=== PATIENT | male | born 1935 | race Caucasian/White ===

== ENCOUNTER 2017-01-20 12:59 | Emergency (ER) | payer MEDICARE, OTHER ==
[~2017-01-20] VITALS: Ht 175.3 cm; Wt 71.8 kg
[2017-01-20 13:00] VITALS: BP 107/58
[2017-02-03] MEDS ORDERED: ASPI81TA85 PO (09:42)
[2017-02-03] MEDS ORDERED: DEPA1TAB3 PO (09:42)
[2017-02-03] MEDS ORDERED: KEPP250T5 PO (09:42)
[2017-02-03] MEDS ORDERED: ATIV1TAB10 PO (09:42)
[2017-02-03] MEDS ORDERED: CELE10TA PO (09:42)
[2017-02-03] MEDS ORDERED: PANT40TA2 PO (11:24)
[2017-02-03] MEDS ORDERED: LORA0.5T11 PO (11:24)
[2017-02-03] MEDS ORDERED: DEPA500T2 PO (11:24)
[2017-02-03] MEDS ORDERED: KEPP1TAB2 PO (11:24)
[2017-02-03] MEDS ORDERED: CITA20TA4 PO (11:24)
[2017-02-03] MEDS ORDERED: PRAZ1CAP PO (11:24)
== END 2017-01-20 13:09 | disposition left against medical advice (07) ==
LOC: M ED 12:59
DX: R29.6 Repeated falls (principal); Z53.29 Procedure and treatment not carried out because of patient's decision for other reasons

== ENCOUNTER → 2017-06-02 | Outpatient (CLI) | payer MEDICARE, OTHER | LOC: M RAD 10:51 | DX: R22.41 Localized swelling, mass and lump, right lower limb (principal) | CPT/HCPCS: 93971 ==

== ENCOUNTER → 2017-10-18 | Outpatient (REF) | payer MEDICARE, OTHER ==
[2017-10-18 12:04] LABS: BASO % 0.9 % (0.0-1.0); EOS # 0.7 10^3/uL (0.0-0.50); EOS % 17.4 % (0.0-3.0); HEMATOCRIT 37.8 % (42.0-52.0); HEMOGLOBIN 12.7 g/dl (13.5-17.5); IMMATURE GRANULOCYTE % 0.5 % (0-3.0); LYMPH # 1.1 10^3/uL (1.5-4.5); LYMPH % 25.6 % (24.0-44.0); MEAN CORPUSCULAR HGB CONC 33.6 g/dl (32.0-36.5); MEAN CORPUSCULAR VOLUME 92.2 fl (80.0-96.0); MONO # 0.4 10^3/uL (0.0-0.8); MONO % 9.9 % (0.0-5.0); NEUTROPHILS # 1.9 10^3/uL (1.8-7.7); NEUTROPHILS % 45.7 % (36.0-66.0); PLATELET COUNT, AUTOMATED 114 10^3/uL (150-450); RED CELL DISTRIBUTION WIDTH 12.9 % (11.5-14.5); WHITE BLOOD COUNT 4.3 10^3/uL (4.0-10.0)
[2017-10-18 12:22] LABS: C REACTIVE PROTEIN QUANTITATIV 0.41 MG/DL (0.00-0.30)
[2017-10-18 12:34] LABS: ERYTHROCYTE SEDIMENTATION RATE 8 mm/hr (0-20)
== END ==
LOC: M LABDRAW1 10:02
DX: M25.572 Pain in left ankle and joints of left foot (principal)
CPT/HCPCS: 86140

== ENCOUNTER 2018-10-26 17:45 | Emergency (ER) | payer MEDICARE, OTHER ==
[~2018-10-26] VITALS: Ht 175.3 cm; Wt 68.2 kg
[~2018-10-26 17:45] MED LIST: ASPI81TA85 PO; ATIV1TAB10 PO; CELE10TA PO; CITA20TA6 PO; CLAR10CA3 PO; DEPA1TAB3 PO; DEPA500T2 PO; KEPP1TAB2 PO; KEPP250T5 PO; LORA0.5T11 PO; PANT40TA3 PO; PRAZ1CAP PO
[2018-10-26] MEDS ORDERED: NS 1,000 ML IV ONE (18:15)
[2018-10-26 18:33] LABS: BASO % 0.5 % (0.0-1.0); EOS # 0.4 10^3/uL (0.0-0.50); EOS % 8.9 % (0.0-3.0); HEMOGLOBIN 11.3 g/dl (13.5-17.5); LYMPH # 1.3 10^3/uL (1.5-4.5); LYMPH % 31.9 % (24.0-44.0); MEAN CORPUSCULAR HEMOGLOBIN 30.6 pg (27.0-33.0); MEAN CORPUSCULAR HGB CONC 33.2 g/dl (32.0-36.5); MEAN CORPUSCULAR VOLUME 92.1 fl (80.0-96.0); MONO # 0.3 10^3/uL (0.0-0.8); MONO % 7.8 % (0.0-5.0); NEUTROPHILS % 50.6 % (36.0-66.0); PLATELET COUNT, AUTOMATED 105 10^3/uL (150-450); RED BLOOD COUNT 3.69 10^6/uL (4.30-6.10)
[2018-10-26 19:13] LABS: BLOOD UREA NITROGEN 21 MG/DL (7-18); CALCIUM LEVEL 8.3 MG/DL (8.8-10.2); CARBON DIOXIDE LEVEL 32 MEQ/L (21-32); CHLORIDE LEVEL 106 MEQ/L (98-107); CK-MB VALUE MASS 3.8 NG/ML (<3.6); CPK CREATINE PHOSPHOKINASE 118 U/L (39-308); CREATININE FOR GFR 1.43 MG/DL (0.70-1.30); GLOMERULAR FILTRATION RATE 50.4 (>35); GLUCOSE, FASTING 109 MG/DL (70-100); MB/CK RELATIVE INDEX 3.22 (< OR =4); POTASSIUM SERUM 4.4 MEQ/L (3.5-5.1); SODIUM LEVEL 143 MEQ/L (136-145); TROPONIN I < 0.02 NG/ML (< 0.10)
--- NOTE | 2018-10-26 20:26 | REP ---
Right shoulder four views: There is a fracture of the distal clavicle. The glenohumeral articulation is unremarkable. There is demineralization. There are no calcifications or foreign bodies. Impression: Fracture of the distal clavicle. Electronically Signed by Byron Olivia MD 10/26/2018 08:17 P
--- NOTE | 2018-10-26 20:27 | REP ---
Right humerus three views: There is a fracture of the distal clavicle. There is demineralization. There is no dislocation. There are no calcifications or foreign bodies. Impression: Fracture of the distal clavicle. Demineralization. Electronically Signed by Byron Olivia MD 10/26/2018 08:18 P
--- NOTE | 2018-10-26 20:28 | REP ---
Chest, single PA view: Comparison is 02/03/2017. The lung melo are clear. Cardiac size is normal. The chemo, mediastinum, skeletal structures are unremarkable except for a fracture of the distal right clavicle. Impression: Fracture of the distal right clavicle, otherwise negative PA chest. Electronically Signed by Byron Olivia MD 10/26/2018 08:19 P
[2018-10-26 21:09] VITALS: BP 119/58
--- NOTE | 2018-10-27 09:42 | ECGEPIP ---
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
== END 2018-10-26 21:26 | disposition home or self-care (01) ==
LOC: EDBD 17:45 → M ED 17:45
DX: S42.001A Fracture of unspecified part of right clavicle, initial encounter for closed fracture (principal); W01.0XXA Fall on same level from slipping, tripping and stumbling without subsequent striking against object, initial encounter; Y92.89 Other specified places as the place of occurrence of the external cause; K21.9 Gastro-esophageal reflux disease without esophagitis; Z79.899 Other long term (current) drug therapy; Z79.82 Long term (current) use of aspirin

== ENCOUNTER 2019-05-23 13:39 | Inpatient (IN) | payer MEDICARE, OTHER ==
[~2019-05-23] VITALS: Ht 175.3 cm; Wt 68.9 kg
[~2019-05-23 13:39] MED LIST changes: -APAP325T4 PO; -DULC10SU2 PR; -ENEMENE PR; -GLUC1LIQ7 PO; -LASI20TA3 PO; -LORA-436 PO; -MACR100C43 PO; -METO1TAB87 PO; -MIRT1TAB PO; -MOM30SS PO; -NAPR250T4 PO; -VITMTA PO
[2019-05-23 14:13] LABS: BASO % 0.2 % (0.0-1.0); EOS # 0.1 10^3/uL (0.0-0.5); EOS % 0.4 % (0.0-3.0); HEMATOCRIT 41.5 % (42.0-52.0); HEMOGLOBIN 13.1 g/dl (13.5-17.5); LYMPH # 1.3 10^3/uL (1.5-5.0); LYMPH % 9.1 % (24.0-44.0); MEAN CORPUSCULAR HGB CONC 31.6 g/dl (32.0-36.5); MONO # 0.8 10^3/uL (0.0-0.8); MONO % 5.8 % (0.0-5.0); NEUTROPHILS # 12.1 10^3/uL (1.5-8.5); NEUTROPHILS % 83.9 % (36.0-66.0); PLATELET COUNT, AUTOMATED 140 10^3/uL (150-450); RED BLOOD COUNT 4.51 10^6/uL (4.30-6.10); WHITE BLOOD COUNT 14.4 10^3/uL (4.0-10.0)
--- NOTE | 2019-05-23 14:49 | REP ---
Clinical: Tachycardia . Comparison: 05/23/2019, . Findings: Most recent examination performed using optimal technique for portable examination demonstrates chronic interstitial changes and the previously suspected left lower lobe infiltrate represents chronic change. No focal consolidation or effusion. Mediastinum and cardiac silhouette normal. Skeletal structures demonstrate age-related osteopenia and degenerative changes. Impression: 1. Examination performed with improved aeration and technique demonstrates chronic changes at the left base. 2. No focal consolidation or effusion. Electronically Signed by Tuan Ruffin MD 05/23/2019 02:41 P
[2019-05-23 14:53] LABS: PARTIAL THROMBOPLASTIN TIME 34.8 SECONDS (25.0-38.4)
[2019-05-23] MEDS ORDERED: NS 500 ML IV ONE ×2 (15:00→16:15)
[2019-05-23 15:01] LABS: ALT/SGPT 8 U/L (12-78); BILIRUBIN,DIRECT < 0.1 MG/DL (0.0-0.2); BILIRUBIN,TOTAL 0.3 MG/DL (0.2-1.0); BLOOD UREA NITROGEN 30 MG/DL (7-18); CALCIUM LEVEL 8.6 MG/DL (8.8-10.2); CARBON DIOXIDE LEVEL 33 MEQ/L (21-32); CHLORIDE LEVEL 105 MEQ/L (98-107); CPK CREATINE PHOSPHOKINASE 73 U/L (39-308); CREATININE FOR GFR 1.24 MG/DL (0.70-1.30); GLOMERULAR FILTRATION RATE 59.3 (>35); GLUCOSE, FASTING 79 MG/DL (70-100); LIPASE 35 U/L (73-393); MB/CK RELATIVE INDEX 1.37 (< OR =4); NT-PRO BNP 4402 PG/ML (<450); SODIUM LEVEL 140 MEQ/L (136-145); TOTAL PROTEIN 6.2 GM/DL (6.4-8.2); TROPONIN I < 0.02 NG/ML (< 0.10)
[2019-05-23 15:04] LABS: INR 1.08; PROTHROMBIN TIME 13.7 SECONDS (11.8-14.0)
[2019-05-23] MEDS ORDERED: DULC10SU2 PR (15:08)
[2019-05-23] MEDS ORDERED: MIRT1TAB PO (15:08)
[2019-05-23] MEDS ORDERED: MOM30SS PO (15:08)
[2019-05-23] MEDS ORDERED: MACR100C43 PO (15:08)
[2019-05-23] MEDS ORDERED: NAPR250T4 PO (15:08)
[2019-05-23] MEDS ORDERED: ENEMENE PR (15:08)
[2019-05-23] MEDS ORDERED: VITMTA PO (15:08)
[2019-05-23] MEDS ORDERED: APAP325T4 PO (15:08)
[2019-05-23] MEDS ORDERED: LORA-436 PO (15:08)
[2019-05-23] MEDS ORDERED: GLUC1LIQ7 PO (15:08)
[2019-05-23] MEDS ORDERED: CELE10TA PO (15:08)
[2019-05-23] MEDS ORDERED: ISOVUE-370 76% 100ML VIAL (Q9967) As Ordered ONE (15:31)
[2019-05-23 15:43] LABS: INFLUENZA A AMPLIFICATION NEGATIVE (NEGATIVE); INFLUENZA B AMPLIFICATION NEGATIVE (NEGATIVE)
[2019-05-23] MEDS ORDERED: VANCOMYCIN HCL 1,000 MG, VIAL MATE ADAPTER 1 EACH in D5W 250 ML IV STA (16:00)
[2019-05-23] MEDS ORDERED: PIPERACILLIN/TAZOBACTAM SOD 3.375 GM in D5W MINI-BAG PLUS 50 ML IV ONE (16:00)
[2019-05-23] MEDS ORDERED: DIGOXIN INJ 0.5 MG/2 ML AMP (J1160) IV STA (16:04)
--- NOTE | 2019-05-23 16:04 | REP ---
Clinical: Chest pain and atrial fibrillation . Technique: Axial contrast enhanced images from the thoracic inlet to the upper abdomen using 75 ml Isovue 370 intravenous contrast material with multiplanar re-formations. Findings: Satisfactory enhancement of the pulmonary vasculature is achieved and no filling defects are identified to suggest pulmonary embolus. Moderate right lower lobe consolidation along with bibasilar atelectasis and small bilateral pleural reactions (left greater than right). No pneumothorax. Reactive adenopathy primarily in the right hilum and subcarinal region noted. Atherosclerotic changes to the thoracic aorta and coronary arteries noted without aortic aneurysm or cardiomegaly. No pericardial effusion. Thickening of the mid/distal esophagus and moderate hiatal hernia noted. Impression: 1. No evidence for pulmonary embolus. 2. Moderate right consolidation, bibasilar atelectasis, and small bilateral pleural reactions noted. Reactive adenopathy suggested. Follow-up to resolution recommended. 3. Circumferential thickening of the mid/distal esophagus with moderate hiatal hernia. Electronically Signed by Tuan Ruffin MD 05/23/2019 03:55 P
--- NOTE | 2019-05-23 16:11 | REP ---
Clinical: Abdominal pain. Technique: Axial contrast enhanced images from the lung bases to the pubic symphysis using 100 ml Isovue 370 intravenous contrast material with coronal and sagittal re-formations. Comparison: 02/03/2017. Findings: Lung bases demonstrate right lower lobe consolidation, bibasilar atelectasis, and small pleural reactions. Hiatal hernia noted. Liver, spleen, pancreas, bilateral adrenal glands are normal. Cholelithiasis again noted without evidence for acute cholecystitis. Kidneys demonstrate cortical age-related changes along with stable cysts measuring 2 cm in the lower pole right kidney and up to approximately 2.7 cm along the posterior left kidney. Evaluation of the enteric system demonstrates moderate hiatal hernia. Diffuse colonic diverticulosis noted without obvious acute diverticulitis. No evidence for bowel obstruction and no free air to suggest perforation. Pelvis demonstrates Degroot catheter in partially collapsed bladder and age appropriate prostate/seminal vesicles. Small amount of free fluid extends along the right paracolic gutter into the pelvis which is nonspecific and likely chronic. Atherosclerotic changes to the aorta and vasculature without aneurysm or dissection. Skeletal structures demonstrate osteopenia and degenerative changes. Impression: 1. Pulmonary findings as described above. 2. Diverticulosis without obvious acute diverticulitis. 3. Cholelithiasis without acute cholecystitis. 4. Stable bilateral renal cysts without hydronephrosis or acute perinephric stranding. 5. Chronic stable age-related changes. 6. No obvious acute abdominopelvic pathology otherwise noted. Electronically Signed by Tuan Ruffin MD 05/23/2019 04:02 P
--- NOTE | 2019-05-23 16:12 | REP ---
Clinical: Altered mental status. Comparison: 02/03/2017 . Findings: Age-related atrophy and microvascular ischemic changes are appreciated. The ventricles and sulci are symmetric. Valdez-white differentiation is maintained. There is no evidence for acute intracranial hemorrhage, mass/mass effect, pathology or infarction. No extra-axial fluid collection. Calvarium is intact. Paranasal sinuses and mastoid air cells are clear. Impression: Age related atrophy and microvascular ischemic changes. No acute intracranial hemorrhage, infarction, or mass/mass effect. Electronically Signed by Tuan Ruffin MD 05/23/2019 04:03 P
[2019-05-23] MEDS ORDERED: METOPROLOL 5 MG/5 ML VIAL IV STA (16:45)
[2019-05-23] MEDS ORDERED: METOPROLOL 5 MG/5 ML VIAL IV PRN (17:00)
[2019-05-23] MEDS ORDERED: MOM 30ML SUSPENSION UDC PO PRN (17:00)
[2019-05-23] MEDS ORDERED: BISACODYL 10 MG SUPP PR PRN (17:00)
[2019-05-23] MEDS ORDERED: ACETAMINOPHEN 325 MG TAB PO PRN (17:00)
[2019-05-23] MEDS ORDERED: FLEET ENEMA PR PRN (17:00)
[2019-05-23] MEDS ORDERED: METOPROLOL TART 25 MG TABLET PO ONE (17:00)
[2019-05-23] MEDS ORDERED: HEPARIN SOD (PORCINE) 5000 UNITS/ML VIAL (J1644 PER 1000UNITS) SC SCH (17:15)
[2019-05-23] MEDS ORDERED: VANCOMYCIN HCL IV SCH (17:15)
[2019-05-23] MEDS ORDERED: FLUID PLACE HOLDER IV SCH (17:15)
[2019-05-23] MEDS ORDERED: ALBUTEROL SULFATE 2.5 MG/0.5 ML INH NEB SOLN INH PRN (17:15)
[2019-05-23] MEDS ORDERED: ACETAMINOPHEN TAB 650MG DOSE (2X325MG) PO PRN (17:15)
--- NOTE | 2019-05-23 17:18 | HPEPDOC ---
General Date of Admission 05/23/19 Date of Service: May 23, 2019 Chief Complaint The patient is a 83-year-old male admitted with a reason for visit of Afib Rvr. Source: Patient, Family, Old records Exam Limitations: No limitations, Clinical conditions Timing/Duration: Day(s) Severity: Severe Associated Symptoms: Shortness of breath History of Present Illness Patient is 83 years old male with past history of seizures, anxiety, posttraumatic stress disorder, hypertension, frequent falls presented hospital with atrial fibrillation with rapid ventricular rate and altered mental status. Patient was transferred from [facility] when he developed confusion. In emergency room patient was found to have any new onset of atrial fibrillation with rapid ventricular rate, white blood count of 14.4, hemoglobin 13.1, potassium 5, TSH within normal limit, BMP 4400, troponin negative, creatinine 1.24. CT chest moderate right consolidation. Abdominal CT showed diverticulosis without obvious acute diverticulitis. Home Medications Scheduled Citalopram Hydrobromide (Celexa) 10 Mg Tablet, 10 MG PO DAILY, (Reported) Divalproex Sodium (Depakote ER) 500 Mg Tab, 500 MG PO BID, (Reported) Levetiracetam (Keppra) 750 Mg Tab, 1,500 MG PO BID, (Reported) Loratadine (Loratadine) 10 Mg Tablet, 10 MG PO DAILY, (Reported) Mirtazapine (Mirtazapine) 7.5 Mg Tablet, 7.5 MG PO QHS, (Reported) Multivitamins (Thera M Plus Tablet) 1 Each Tablet, 1 TAB PO DAILY, (Reported) Naproxen (Naproxen) 250 Mg Tablet, 250 MG PO BID, (Reported) Nitrofurantoin Monohyd/M-Cryst (Macrobid 100 mg Capsule) 100 Mg Capsule, 100 MG PO BID, (Reported) STARTED 05/19/19 DUE TO STOP ON 05/24/19 Nut.tx.gluc.intoler,Lac-Fr,Soy (Glucerna 1.2 Kevin) 237 Ml Liquid, 240 ML PO BID, (Reported) Pantoprazole Sodium (Pantoprazole Sodium) 40 Mg Tab, 40 MG PO DAILY, (Reported) Scheduled PRN Acetaminophen (Acetaminophen) 325 Mg Tablet, 650 MG PO Q4H PRN for PAIN / FEVER, (Reported) Bisacodyl (Dulcolax) 10 Mg Supp.rect, 10 MG OK DAILY PRN for CONSTIPATION, (Reported) Milk Of Magnesia (Milk of Magnesia) 2,400 Mg/10 Ml Oral.susp, 10 ML PO DAILY PRN for CONSTIPATION, (Reported) Sodium Phosphate,[place]ck[place]ridge-Dibasic (Enema) 133 Ml Enema, 1 BRITTANY OK DAILY PRN for CONSTIPATION, (Reported) Allergies Coded Allergies: No Known Allergies (Verified , 10/26/18) Past Medical History Medical History Seizure disorder. Anxiety. Post-traumatic stress disorder (PTSD). Recurrent falls recently. Recent history of nausea, vomiting and dehydration for which he was admitted at [facility] from 01/30/2017 to 02/01/2017. Chronic mastoiditis of the left side. Chronic hypotension. Surgical History Appendectomy. Esophagogastroduodenoscopy (EGD) and colonoscopy. Family History I personally reviewed family history and found not pertinent Social History * Smoker: Denies, former Smoker Alcohol: Denies Drugs: denies A-FIB/CHADSVASC A-FIB History Current/History of A-Fib/PAF?: Yes Current PO Anticoag Therapy: Yes Review of Systems Constitutional: Denies: Chills, Fever Eyes: Denies: Pain ENT: Denies: Head Aches Skin: Denies: Rash, Lesions Pulmonary: Reports: Dyspnea, Cough Cardiovascular: Reports: Palpitations; Denies: Chest Pain Gastrointestinal: Denies: Nausea, Vomiting Genitourinary: Denies: Dysuria, Frequency Hematologic: Denies: Bruising, Bleeding Excessively Endocrine: Denies: Polydipsia, Polyphagia Musculoskeletal: Denies: Neck Pain, Back Pain Neurological: Denies: Weakness Psych: Reports: Mood Normal Physical Examination General Exam: Positive: Alert, Cooperative Eye Exam: Positive: PERRLA ENT Exam: Positive: Atraumatic Neck Exam: Positive: Supple; Negative: JVD Chest Exam: Positive: Rales (over a right lung area), Diminished; Negative: Clear to auscultation Heart Exam: Positive: Irregular Rhythm Telemetry: Positive: Atrial fibrillation Abdomen Exam: Positive: Normal bowel sounds Extremity Exam: Negative: Clubbing, Cyanosis, Swelling Skin Exam: Positive: Nl turgor and temperature Neuro Exam: Positive: Normal Gait Psych Exam: Positive: Other (patient is lethargic) Vital Signs Vital Signs Date Time Temp Pulse Resp B/P (MAP) Pulse Ox O2 Delivery O2 Flow Rate FiO2 05/23/19 16:41 145 129/71 (90) 05/23/19 15:27 16 99 Nasal Cannula 4.0 05/23/19 13:41 96.5 Laboratory Data Labs 24H Laboratory Tests 2 05/23/19 13:59: Immature Granulocyte % (Auto) 0.6, Neutrophils (%) (Auto) 83.9H, Lymphocytes (%) (Auto) 9.1L, Monocytes (%) (Auto) 5.8H, Eosinophils (%) (Auto) 0.4, Basophils (%) (Auto) 0.2, Neutrophils # (Auto) 12.1H, Lymphocytes # (Auto) 1.3L, Monocytes # (Auto) 0.8, Eosinophils # (Auto) 0.1, Basophils # (Auto) 0.0, Nucleated Red Blood Cells % (auto) 0.0, Anion Gap 2L, Glomerular Filtration Rate 59.3, Calcium Level 8.6L, Total Bilirubin 0.3, Direct Bilirubin < 0.1, Aspartate Amino Transf (AST/SGOT) 33, Alanine Aminotransferase (ALT/SGPT) 8L, Alkaline Phosphatase 69, Total Creatine Kinase 73, Creatine Kinase MB 1.0, Creatine Kinase MB Relative Index 1.37, Troponin I < 0.02, IT-Xam-K-Type Natriuretic Peptide 4402H, Total Protein 6.2L, Albumin 2.0L, Albumin/Globulin Ratio 0.48L, Lipase 35L, Thyroid Stimulating Hormone (TSH) 1.940, Free Thyroxine 1.20 05/23/19 14:09: Bedside Glucose (Misc Panel) 77L 05/23/19 14:13: Prothrombin Time 13.7, Prothromb Time International Ratio 1.08, Activated Partial Thromboplast Time 34.8 05/23/19 15:07: Influenza Type A (RT-PCR) NEGATIVE, Influenza Type B (RT-PCR) NEGATIVE 05/23/19 15:30: Urine Color PALLAVI, Urine Appearance CLOUDYH, Urine pH 8.0, Urine Specific [place] 1.023, Urine Protein 1+H, Urine Glucose (UA) NEGATIVE, Urine Ketones 1+H, Urine Blood 3+H, Urine Nitrite NEGATIVE, Urine Bilirubin NEGATIVE, Urine Urobilinogen 0.2, Urine Leukocyte Esterase TRACEH, Urine WBC (Auto) 33H, Urine RBC (Auto) TNTCH, Urine Hyaline Casts (Auto) 0, Urine Bacteria (Auto) NEGATIVE, Urine Squamous Epithelial Cells 0, Urine Amorphous Sediment SMALLH, Urine Mucus (Auto) SMALL, Urine Sperm (Auto) CBC/BMP Laboratory Tests 05/23/19 13:59 Microbiology Microbiology 05/23/19 Urine Culture, Received Pending 05/23/19 Blood Culture, Received Pending 05/23/19 Blood Culture, Received Pending Assessment/Plan Patient is 83 years old male with past history of seizures, anxiety, posttraumatic stress disorder, hypertension, frequent falls presented hospital with atrial fibrillation with rapid ventricular rate and altered mental status. Patient was transferred from [facility] when he developed confusion. In emergency room patient was found to have any new onset of atrial fibrillation with rapid ventricular rate, white blood count of 14.4, hemoglobin 13.1, potassium 5, TSH within normal limit, BMP 4400, troponin negative, creatinine 1.24. CT chest moderate right consolidation. Abdominal CT showed diverticulosis without obvious acute diverticulitis. Problems (1) Sepsis Status: Acute Problem Text: Most likely secondary to pneumonia, community-acquired versus aspiration Patient has leukocytosis, tachycardia and tachypnea Speech evaluation IV fluid Blood culture, sputum culture Respiratory panel Vancomycin IV, Zosyn IV, doxycycline IV (2) Pneumonia Status: Acute Problem Text: CT scan showed a right lower lung infiltrate IV fluid Sputum culture, urine antigen for Streptococcus and Legionella IV broad-spectrum antibiotics Incentive spirometry Inhalers (3) Atrial fibrillation with RVR Status: Acute Problem Text: I initiated beta jessica PO Lopressor IV when necessary Targeted oral anticoagulation initiated, I will defer continuation of anticoag ulation therapy to primary care physician in the outpatient settings. Patient had a history of multiple falls Echo Troponin negative BNP is elevated most likely secondary to atrial fibrillation. Patient dry on the exam, no JVD, no leg swelling (4) Acute kidney injury Status: Acute Problem Text: Continue IV fluid Most likely prerenal secondary to dehydration (5) Seizures Status: Chronic Problem Text: Seizure precaution Continue home meds (6) Metabolic encephalopathy Status: Acute Problem Text: Most likely secondary to sepsis, dehydration See above Plan / VTE VTE Prophylaxis Ordered?: Yes JAKOB SPARKS DO May 23, 2019 17:18
[2019-05-23] MEDS: NS 1,000 ML IV SCH (18:51)
[2019-05-23] MEDS: RIVAROXABAN 20 MG TAB (XARELTO) PO SCH (18:52)
--- NOTE | 2019-05-23 18:55 | ECGEPIP ---
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
[2019-05-23 19:00] LABS: CK-MB VALUE MASS < 1.0 NG/ML (<3.6); CPK CREATINE PHOSPHOKINASE 34 U/L (39-308); MAGNESIUM LEVEL 1.9 MG/DL (1.8-2.4); MB/CK RELATIVE INDEX 2.94 (< OR =4); PHOSPHORUS LEVEL 2.7 MG/DL (2.5-4.9); TROPONIN I < 0.02 NG/ML (< 0.10)
[2019-05-23 22:17] VITALS: BP 107/66
[2019-05-23] MEDS: levETIRAcetam 250MG TABLET (KEPPRA) PO SCH (22:58)
[2019-05-23] MEDS: METOPROLOL TART 25 MG TABLET PO SCH (22:58)
[2019-05-23] MEDS: DIVALPROEX 500MG *ER* TAB PO SCH (22:58)
[2019-05-23] MEDS: DOXYCYCLINE HYCLATE 100 MG in D5W MINI-BAG PLUS 100 ML IV SCH (22:59)
[2019-05-23] MEDS: MIRTAZAPINE 7.5MG PER 1/2 TABLET PO SCH (23:25)
[2019-05-24] VITALS (7 sets, daily range): BP systolic 92–118; BP diastolic 51–69
--- NOTE | 2019-05-24 00:40 | PHACANCOPD ---
PHARMACY VANCOMYCIN DOSING Pt Demographics Demographics Patient Age:83 , Weight:65.600 , Gender: male Adjusted Body Weight Date: 05/24/19, Adjusted Body Weight: [65.6] Kg(ACTUAL WT) Vancomycin Vancomycin indication: CAP Vancomycin Target Ranges: 15-20 mcg/ml Vancomycin Load Y/N: Yes Load Dose Date Time Vancomycin Load Dose: 1GM Date: 05/23 Time:1730 Vancomycin Dose Date: 05/24/19. Current Vancomycin Dose: [1 GM Q18H] Intermittent Dosing?: No Labs Micro Microbiology 05/23/19 Urine Culture, Received Pending 05/23/19 Blood Culture, Received Pending 05/23/19 Blood Culture, Received Pending Creatinine Clearance Date:05/24/19. Creatinine Clearance: [42.13].CALCULATED Assessment and Plan Maintaining Current Dose?: Yes Reason for dose change: No Dose Change Pharmacist Note Pharmacist Note Date: 05/24/19. Pharmacist note:83YOM ADMITTED W/SUSPECTED CAP.5'9",65.6 KG,NKDA,SCR=1.24,CRCL=42.13 (calculated)MRSA PCR ordered. Tx includes :Doxycyxline 100mg IV Q12H,Pip/Tazo 4.5gm IV Q6H and Pharmacy dosed Vancomycin.Vanco 1 gram administered in ED 05/23@1730.Will begin Vancomycin regimen at 1 gram IV [id number] 05/24@0100: first trough ordered for 05/24@1800(prior to 3rd dose)-will continue to follow [facility] May 24, 2019 00:40
[2019-05-24] MEDS ORDERED: VANCOMYCIN HCL 1,000 MG, VIAL MATE ADAPTER 1 EACH in D5W 250 ML IV SCH (01:00)
[2019-05-24] MEDS: PIPERACILLIN/TAZOBACTAM SOD 4.5 GM in D5W MINI-BAG PLUS 100 ML IV SCH ×5 (01:28→23:52)
[2019-05-24 01:36] LABS: CK-MB VALUE MASS < 1.0 NG/ML (<3.6); CPK CREATINE PHOSPHOKINASE 24 U/L (39-308); MB/CK RELATIVE INDEX 4.17 (< OR =4); TROPONIN I < 0.02 NG/ML (< 0.10)
[2019-05-24 08:47] LABS: HEMATOCRIT 33.6 % (42.0-52.0); MEAN CORPUSCULAR HEMOGLOBIN 29.7 pg (27.0-33.0); MEAN CORPUSCULAR HGB CONC 31.8 g/dl (32.0-36.5); MEAN CORPUSCULAR VOLUME 93.3 fl (80.0-96.0); PLATELET COUNT, AUTOMATED 124 10^3/uL (150-450); WHITE BLOOD COUNT 12.4 10^3/uL (4.0-10.0)
[2019-05-24 08:56] LABS: HEMOGLOBIN 10.7 g/dl (13.5-17.5)
[2019-05-24] MEDS: METOPROLOL TART 25 MG TABLET PO SCH ×2 (09:00→21:34)
[2019-05-24] MEDS: DOXYCYCLINE HYCLATE 100 MG in D5W MINI-BAG PLUS 100 ML IV SCH ×2 (09:05→21:35)
[2019-05-24] MEDS: levETIRAcetam 250MG TABLET (KEPPRA) PO SCH ×2 (09:06→21:33)
[2019-05-24] MEDS: DIVALPROEX 500MG *ER* TAB PO SCH ×2 (09:06→21:32)
[2019-05-24] MEDS: CitaloPRAM (CeleXA) 10 MG TABLET PO SCH (09:06)
[2019-05-24] MEDS: PANTOPRAZOLE 40MG TAB (PROTONIX) PO SCH (09:06)
[2019-05-24] MEDS: NS 1,000 ML IV SCH ×3 (09:07→23:51)
[2019-05-24 09:12] LABS: ALBUMIN 1.7 GM/DL (3.2-5.2); ALT/SGPT 6 U/L (12-78); BILIRUBIN,TOTAL 0.4 MG/DL (0.2-1.0); BLOOD UREA NITROGEN 25 MG/DL (7-18); CALCIUM LEVEL 8.1 MG/DL (8.8-10.2); CARBON DIOXIDE LEVEL 31 MEQ/L (21-32); CHLORIDE LEVEL 109 MEQ/L (98-107); CREATININE FOR GFR 0.94 MG/DL (0.70-1.30); GLOMERULAR FILTRATION RATE > 60.0 (>35); GLUCOSE, FASTING 73 MG/DL (70-100); POTASSIUM SERUM 4.3 MEQ/L (3.5-5.1); SODIUM LEVEL 143 MEQ/L (136-145); TOTAL PROTEIN 5.5 GM/DL (6.4-8.2)
[2019-05-24 09:19] LABS: CK-MB VALUE MASS < 1.0 NG/ML (<3.6); CPK CREATINE PHOSPHOKINASE 26 U/L (39-308); MB/CK RELATIVE INDEX 3.85 (< OR =4); TROPONIN I < 0.02 NG/ML (< 0.10)
[2019-05-24] MEDS ORDERED: VARIBAR PUDDING 40% w/v 230ML TUBE As Ordered ONE (11:52)
[2019-05-24] MEDS ORDERED: BARIUM SULFATE 700 MG TABLET (E-Z-DISK) As Ordered ONE (11:53)
[2019-05-24] MEDS ORDERED: VARIBAR NECTAR 40% w/v 240ML SUSP BTL As Ordered ONE (11:53)
[2019-05-24] MEDS ORDERED: E-Z-PAQUE 96% w/w SUSP 176GM BTL As Ordered ONE (11:53)
--- NOTE | 2019-05-24 16:20 | IPNPDOC ---
Text Note Date of Service The patient was seen on 05/24/19. NOTE Subjective: Patient stated that he feels much better today, his breathing imp roved. Patient denied fever, chills, nausea, vomiting, diarrhea Objective: VITAL SIGNS: Please see below. GENERAL APPEARANCE: Male, not in apparent distress HEENT: Normocephalic, atraumatic. Mucous members moist and pink CARDIOVASCULAR: Regular rate and rhythm. No murmurs, rubs or gallops. Radial pulses are intact. There is no lower extremity edema LUNGS: Diminished lung sounds ABDOMEN: Abdomen is soft and nontender. MUSCULOSKELETAL: Range of motion is intact in all 4 extremities NEUROLOGICAL: Cranial nerves II-12 are grossly intact. Speech is not dysarthric Assessment/Plan Patient is 83 years old male with past history of seizures, anxiety, posttraumatic stress disorder, hypertension, frequent falls presented hospital with atrial fibrillation with rapid ventricular rate and altered mental status. Patient was transferred from [facility] when he developed confusion. In emergency room patient was found to have any new onset of atrial fibrillation with rapid ventricular rate, white blood count of 14.4, hemoglobin 13.1, potassium 5, TSH within normal limit, BMP 4400, troponin negative, creatinine 1.24. CT chest moderate right consolidation. Abdominal CT showed diverticulosis without obvious acute diverticulitis. Problems (1) Sepsis Resolved Most likely secondary to pneumonia, community-acquired versus aspiration Patient had leukocytosis, tachycardia and tachypnea on the admission Speech evaluation positive for oropharyngeal dysfunction. Diet was modified Continue IV fluid Blood culture negative, sputum culture pending Respiratory panel negative MRSA negative, vancomycin discontinued Zosyn IV, doxycycline IV (2) Pneumonia CT scan showed a right lower lung infiltrate most likely secondary to aspiration IV fluid Sputum culture, urine antigen for Streptococcus and Legionella pending IV broad-spectrum antibiotics Incentive spirometry Inhalers Aspiration precaution (3) Atrial fibrillation with RVR Resolved, converted to sinus rhythm on telemetry We'll repeat EKG I initiated beta jessica PO Lopressor IV when necessary Targeted oral anticoagulation initiated, I will defer continuation of anticoagulation therapy to primary care physician in the outpatient settings. Kenan romero had a history of multiple falls Echo pending Troponin negative BNP was elevated most likely secondary to atrial fibrillation. Patient dry on the exam, no JVD, no leg swelling (4) Acute kidney injury Continue IV fluid Most likely prerenal secondary to dehydration (5) Seizures Seizure precaution Continue home meds (6) Metabolic encephalopathy Resolved Most likely secondary to sepsis, dehydration See above Plan / VTE VTE Prophylaxis Ordered?: Yes VS,Fishbone, I+O VS, Fishbone, I+O Laboratory Tests 05/24/19 08:37 Vital Signs Date Time Temp Pulse Resp B/P (MAP) Pulse Ox O2 Delivery O2 Flow Rate FiO2 05/24/19 12:50 96.9 81 18 92/51 (65) 100 Room Air 05/24/19 04:43 4.0 I&O- Last 24 Hours up to 6 AM 05/24/19 06:00 Intake Total 1910 ml Output Total 450 ml Balance 1460 ml JAKOB SPARKS DO May 24, 2019 16:20
[2019-05-24 17:30] LABS: BLOOD UREA NITROGEN 24 MG/DL (7-18); CARBON DIOXIDE LEVEL 33 MEQ/L (21-32); CHLORIDE LEVEL 109 MEQ/L (98-107); CREATININE FOR GFR 0.88 MG/DL (0.70-1.30); GLOMERULAR FILTRATION RATE > 60.0 (>35); GLUCOSE, FASTING 75 MG/DL (70-100); MAGNESIUM LEVEL 1.8 MG/DL (1.8-2.4); SODIUM LEVEL 142 MEQ/L (136-145)
[2019-05-24] MEDS: RIVAROXABAN 20 MG TAB (XARELTO) PO SCH (18:37)
--- NOTE | 2019-05-24 20:14 | ECGEPIP ---
[facility] Test Date: 2019-05-24 Pat Name: MEGHANN ZURITA Department: Room: [place] [address] Gender: Male Speech Coach: cecilio : 1935 Requested By: JAKOB SPARKS Order Number: [id number] Reading MD: Abram Chilel Measurements Intervals [place] Rate: 81 P: 18 UT: 164 QRS: 43 QRSD: 94 T: 25 QT: 371 QTc: 433 Interpretive Statements SINUS RHYTHM Within normal limits. Rhythm change compared with at 1403 hrs. Electronically Signed on 05-24-2019 20:14:12 EST by Abram Chilel
[2019-05-24] MEDS: MIRTAZAPINE 7.5MG PER 1/2 TABLET PO SCH (21:57)
[2019-05-25] VITALS (7 sets, daily range): BP systolic 80–122; BP diastolic 44–64
[2019-05-25 06:17] LABS: HEMATOCRIT 29.9 % (42.0-52.0); HEMOGLOBIN 9.4 g/dl (13.5-17.5); MEAN CORPUSCULAR HEMOGLOBIN 29.2 pg (27.0-33.0); MEAN CORPUSCULAR HGB CONC 31.4 g/dl (32.0-36.5); MEAN CORPUSCULAR VOLUME 92.9 fl (80.0-96.0); PLATELET COUNT, AUTOMATED 110 10^3/uL (150-450); RED BLOOD COUNT 3.22 10^6/uL (4.30-6.10); WHITE BLOOD COUNT 8.7 10^3/uL (4.0-10.0)
[2019-05-25] MEDS: PIPERACILLIN/TAZOBACTAM SOD 4.5 GM in D5W MINI-BAG PLUS 100 ML IV SCH ×2 (06:35→11:55)
[2019-05-25 06:41] LABS: BLOOD UREA NITROGEN 22 MG/DL (7-18); CARBON DIOXIDE LEVEL 30 MEQ/L (21-32); CHLORIDE LEVEL 108 MEQ/L (98-107); CREATININE FOR GFR 0.91 MG/DL (0.70-1.30); GLOMERULAR FILTRATION RATE > 60.0 (>35); GLUCOSE, FASTING 63 MG/DL (70-100); MAGNESIUM LEVEL 1.6 MG/DL (1.8-2.4); POTASSIUM SERUM 3.6 MEQ/L (3.5-5.1); SODIUM LEVEL 141 MEQ/L (136-145)
[2019-05-25] MEDS ORDERED: POTASSIUM CHLORIDE 10 MEQ SR TABLET PO ONE (08:00)
[2019-05-25] MEDS ORDERED: MAG SULF 1GM/100ML (MAG RUN) 1 GM in IV 1 EA IV ONE (08:00)
[2019-05-25] MEDS: METOPROLOL TART 25 MG TABLET PO SCH ×2 (08:35→20:15)
[2019-05-25] MEDS: levETIRAcetam 250MG TABLET (KEPPRA) PO SCH ×2 (08:46→20:13)
[2019-05-25] MEDS: PANTOPRAZOLE 40MG TAB (PROTONIX) PO SCH (08:46)
[2019-05-25] MEDS: CitaloPRAM (CeleXA) 10 MG TABLET PO SCH (08:46)
[2019-05-25] MEDS: DIVALPROEX 500MG *ER* TAB PO SCH ×2 (08:47→20:16)
[2019-05-25] MEDS ORDERED: NS 500 ML IV ONE (09:00)
[2019-05-25] MEDS ORDERED: PREVNAR 13 VACCINE SYRINGE (CPT CODE:90670) IM ONE ×2 (09:00→10:00)
[2019-05-25] MEDS: IRON POLYSAC (NIFEREX) 150 MG CAP PO SCH ×2 (09:00→20:14)
[2019-05-25] MEDS: NS 1,000 ML IV SCH ×2 (09:33→19:31)
[2019-05-25] MEDS: DOXYCYCLINE HYCLATE 100 MG in D5W MINI-BAG PLUS 100 ML IV SCH (10:29)
--- NOTE | 2019-05-25 11:38 | IPNPDOC ---
Text Note Date of Service The patient was seen on 05/25/19. NOTE Subjective: No any acute events overnight. Patient denied fever, chills, nausea, vomiting, diarrhea. Patient developed hypotension in the morning, normal saline bolus given blood pressures was stabilized. Objective: VITAL SIGNS: Please see below. GENERAL APPEARANCE: Male, not in apparent distress HEENT: Normocephalic, atraumatic. Mucous members moist and pink CARDIOVASCULAR: Regular rate and rhythm. No murmurs, rubs or gallops. Radial pulses are intact. There is no lower extremity edema LUNGS: Diminished lung sounds ABDOMEN: Abdomen is soft and nontender. MUSCULOSKELETAL: Range of motion is intact in all 4 extremities NEUROLOGICAL: Cranial nerves II-12 are grossly intact. Speech is not dysarthric Assessment/Plan Patient is 83 years old male with past history of seizures, anxiety, posttraumatic stress disorder, hypertension, frequent falls presented hospital w ith atrial fibrillation with rapid ventricular rate and altered mental status. Patient was transferred from [facility] when he developed confusion. In emergency room patient was found to have any new onset of atrial fibrillation with rapid ventricular rate, white blood count of 14.4, hemoglobin 13.1, potassium 5, TSH within normal limit, BMP 4400, troponin negative, creatinine 1.24. CT chest moderate right consolidation. Abdominal CT showed diverticulosis without obvious acute diverticulitis. Problems (1) Sepsis Resolved Most likely secondary to pneumonia, community-acquired versus aspiration Patient had leukocytosis, tachycardia and tachypnea on the admission Speech evaluation positive for oropharyngeal dysfunction. Diet was modified Continue IV fluid Blood culture negative, sputum culture pending Respiratory panel negative MRSA negative, vancomycin discontinued (2) Pneumonia CT scan showed a right lower lung infiltrate most likely secondary to aspiration IV fluid Sputum culture, urine antigen for Streptococcus and Legionella pending Incentive spirometry Inhalers Aspiration precaution DC IV antibiotics, levofloxacin by mouth (3) Atrial fibrillation with RVR Resolved, converted to sinus rhythm on telemetry I initiated beta jessica PO Lopressor IV when necessary Targeted oral anticoagulation initiated, I will defer continuation of anticoagulation therapy to primary care physician in the outpatient settings. Patient had a history of multiple falls Echo pending Troponin negative BNP was elevated most likely secondary to atrial fibrillation. Patient dry on the exam, no JVD, no leg swelling (4) Acute kidney injury Resolved Continue IV fluid Most likely prerenal secondary to dehydration (5) Seizures Seizure precaution Continue home meds (6) Metabolic encephalopathy Resolved Most likely secondary to sepsis, dehydration See above Normocytic anemia Check stool for occult blood Iron panel showed low iron, iron supplementation started B12 and folate Plan / VTE VTE Prophylaxis Ordered?: Yes VS,Antoinette, I+O VS, Antoinette, I+O Laboratory Tests 05/24/19 16:58 05/25/19 05:41 Vital Signs Date Time Temp Pulse Resp B/P (MAP) Pulse Ox O2 Delivery O2 Flow Rate FiO2 05/25/19 10:16 100/58 (72) 05/25/19 08:35 68 05/25/19 07:58 97.7 20 95 Room Air 05/24/19 04:43 4.0 I&O- Last 24 Hours up to 6 AM 05/25/19 06:00 Intake Total 1970 ml Output Total 280 ml Balance 1690 ml JAKOB SPARKS DO May 25, 2019 11:38
[2019-05-25 12:37] LABS: PERCENT SATURATION 22.8 % (19.7-50.0)
--- NOTE | 2019-05-25 15:12 | ECHO ---
DATE OF PROCEDURE: 05/25/2019 AGE: 83 GENDER: Male. HEIGHT: 69 inches WEIGHT: 145 pounds Body surface area 1.8 m2. LOCATION: Inpatient, progressive care unit (PCU), room 3228 REFERRING PHYSICIAN: Dr. Dru Mota INDICATION: Abnormal electrocardiogram (EKG). MEASUREMENTS 2-D measurements: RV - 3.9 cm LV - 3.9 cm Septum 1.0 cm Posterior wall 1.0 cm Aortic root 3.9 cm LA - 3.3 cm LVEF 65% Doppler measurements: AV - 0.98 meters per second LVOT - 0.96 meters per second LVOT diameter 2.0 cm MV-E: 72, A: 86, E/A ratio 0.8. Early mitral deceleration time 290 milliseconds. E prime medial 7.3, A prime medial 10, E prime lateral 7.9. Average E/E prime ratio 9.5 /PCWP 13.6 mmHg PV - 0.7 meters per second Pulmonary artery acceleration time 123 milliseconds RVSP 24 mmHg IVC - 1.9 cm COMMENTS: Normal sinus rhythm without intraventricular conduction disturbance. Technically difficult study in light of the patient's body habitus but diagnostically useful information was still obtained. M-mode and 2-D dimensional echocardiography was performed with pulsed, continuous wave, color flow and tissue Doppler studies. Normal left ventricular size, wall thickness and wall motion. Normal left atrial size with grade one LV diastolic dysfunction with current estimated mean left atrial pressure upper limits of normal. Normal right heart chamber sizes and motion and estimated pulmonary arterial pressure. Normal IVC size and collapse against an elevated central venous pressure. Borderline dilated aortic root but normal ascending aortic diameter. Subtle aortic valvular sclerosis without functional abnormality. Mild degenerative changes of the mitral valvular apparatus with adequate leaflet excursion and no posterior systolic buckling. No functional abnormality. Normal appearing and functioning tricuspid valve. No apparent intracardiac mass or pericardial effusion.
[2019-05-25] MEDS ORDERED: NS 1,000 ML IV SCH (17:45)
[2019-05-25] MEDS: RIVAROXABAN 20 MG TAB (XARELTO) PO SCH (17:46)
[2019-05-25] MEDS: MIRTAZAPINE 7.5MG PER 1/2 TABLET PO SCH (20:13)
[2019-05-26] VITALS: BP 117/58
[2019-05-26] MEDS: LevoFLOXacin 750 MG TABLET PO SCH (05:41)
[2019-05-26 05:48] LABS: HEMATOCRIT 30.9 % (42.0-52.0); HEMOGLOBIN 9.8 g/dl (13.5-17.5); MEAN CORPUSCULAR HEMOGLOBIN 29.5 pg (27.0-33.0); MEAN CORPUSCULAR HGB CONC 31.7 g/dl (32.0-36.5); MEAN CORPUSCULAR VOLUME 93.1 fl (80.0-96.0); RED BLOOD COUNT 3.32 10^6/uL (4.30-6.10); WHITE BLOOD COUNT 6.8 10^3/uL (4.0-10.0)
[2019-05-26 06:12] LABS: PLATELET COUNT, AUTOMATED 88 10^3/uL (150-450)
[2019-05-26 06:13] LABS: BLOOD UREA NITROGEN 20 MG/DL (7-18); CALCIUM LEVEL 8.1 MG/DL (8.8-10.2); CARBON DIOXIDE LEVEL 27 MEQ/L (21-32); CHLORIDE LEVEL 112 MEQ/L (98-107); CREATININE FOR GFR 0.83 MG/DL (0.70-1.30); GLOMERULAR FILTRATION RATE > 60.0 (>35); GLUCOSE, FASTING 56 MG/DL (70-100); MAGNESIUM LEVEL 1.8 MG/DL (1.8-2.4); POTASSIUM SERUM 5.1 MEQ/L (3.5-5.1); SODIUM LEVEL 140 MEQ/L (136-145)
[2019-05-26 08:00] VITALS: BP 107/59
[2019-05-26] MEDS: PANTOPRAZOLE 40MG TAB (PROTONIX) PO SCH (08:05)
[2019-05-26] MEDS: DIVALPROEX 500MG *ER* TAB PO SCH ×2 (08:05→21:24)
[2019-05-26] MEDS: levETIRAcetam 250MG TABLET (KEPPRA) PO SCH ×2 (08:05→21:25)
[2019-05-26] MEDS: CitaloPRAM (CeleXA) 10 MG TABLET PO SCH (08:05)
[2019-05-26] MEDS: IRON POLYSAC (NIFEREX) 150 MG CAP PO SCH ×2 (08:05→21:25)
[2019-05-26] MEDS: METOPROLOL TART 25 MG TABLET PO SCH ×2 (08:08→21:26)
--- NOTE | 2019-05-26 08:12 | REPVR ---
PROCEDURE INFORMATION: Exam: US Retroperitoneal Limited, Kidneys Exam date and time: 05/26/2019 7:27 AM Age: 83 years old Clinical indication: Abdominal pain; Flank; Left; Additional info: Oliguria TECHNIQUE: Imaging protocol: Real-time ultrasound of the retroperitoneum with image documentation. Examination was focused on the kidneys. COMPARISON: CT ABD/PEL W/IV CONTRAST ONLY 05/23/2019 3:37 PM (report not provided) FINDINGS: Right kidney: The right kidney measures 12.3 x 5.0 x 4.0 cm. It appears generally echogenic. It contains a 1.6 x 1.7 x 2.1 cm simple cyst in the lower pole and a 1.0 x 0.8 x 1.0 cm simple cyst in the upper pole. There appears to be mild pelviectasis without rsoy hydronephrosis. Left kidney: The left kidney measures 12.3 x 5.2 x 3.8 cm. It appears generally echogenic. It contains a 2.1 x 2.0 x 2.2 cm simple cyst in the lower pole and a 3.9 x 1.6 x 1.8 cm simple cyst laterally. There appears to be mild pelviectasis without rosy hydronephrosis. IMPRESSION: 1. Echogenic appearance of the kidneys bilaterally, suggesting chronic medical renal disease. 2. Appearance of mild bilateral pelviectasis without rosy hydronephrosis. 3. Bilateral renal cysts. Electronically signed by: Bhanu Nunez On 05/26/2019 08:12:16 AM
[2019-05-26] MEDS ORDERED: SLF 3 ML SYR IV PRN (09:45)
--- NOTE | 2019-05-26 10:56 | IPNPDOC ---
Text Note Date of Service The patient was seen on 05/26/19. NOTE Subjective: No any acute events overnight. Patient denies fever, chills, nausea, vomiting, palpitations, chest pain. Objective: VITAL SIGNS: Please see below. GENERAL APPEARANCE: Male, not in apparent distress HEENT: Normocephalic, atraumatic. Mucous members moist and pink CARDIOVASCULAR: Regular rate and rhythm. No murmurs, rubs or gallops. Radial pulses are intact. There is no lower extremity edema LUNGS: Diminished lung sounds ABDOMEN: Abdomen is soft and nontender. MUSCULOSKELETAL: Range of motion is intact in all 4 extremities NEUROLOGICAL: Cranial nerves II-12 are grossly intact. Speech is not dysarthric Assessment/Plan Patient is 83 years old male with past history of seizures, anxiety, posttraumatic stress disorder, hypertension, frequent falls presented hospital with atrial fibrillation with rapid ventricular rate and altered mental status. Patient was transferred from [facility] when he developed confusion. In emergency room patient was found to have any new onset of atrial fibrillation with rapid ventricular rate, white blood count of 14.4, hemoglobin 13.1, potassium 5, TSH within normal limit, BMP 4400, troponin negative, creatinine 1.24. CT chest m oderate right consolidation. Abdominal CT showed diverticulosis without obvious acute diverticulitis. Patient received treatment with broad-spectrum antibiotics. Await PT/OT evaluation for placement Problems (1) Sepsis Resolved Most likely secondary to pneumonia, community-acquired versus aspiration Patient had leukocytosis, tachycardia and tachypnea on the admission Speech evaluation positive for oropharyngeal dysfunction. Diet was modified Blood culture negative, sputum culture pending Respiratory panel negative MRSA negative, vancomycin discontinued (2) Pneumonia CT scan showed a right lower lung infiltrate most likely secondary to aspiration IV fluid Sputum culture, urine antigen for Streptococcus and Legionella pending Incentive spirometry Inhalers Aspiration precaution DC IV antibiotics, levofloxacin by mouth (3) Atrial fibrillation with RVR Resolved, converted to sinus rhythm on telemetry. Currently, heart rate is under control I initiated beta jessica PO Lopressor IV when necessary Targeted oral anticoagulation initiated, I will defer continuation of anticoagulation therapy to primary care physician in the outpatient settings. Patient had a history of multiple falls Echo showed ejection fraction 65% without diastolic abnormalities Troponin negative BNP was elevated most likely secondary to atrial fibrillation. (4) Acute kidney injury Resolved Continue IV fluid Most likely prerenal secondary to dehydration (5) Seizures Seizure precaution Continue home meds (6) Metabolic encephalopathy Resolved Most likely secondary to sepsis, dehydration See above Normocytic anemia Check stool for occult blood pending Iron panel showed low iron, iron supplementation started B12 and folate pending Plan / VTE VTE Prophylaxis Ordered?: Yes VS,Antoinette, I+O VS, Antoinette, I+O Laboratory Tests 05/26/19 05:35 Vital Signs Date Time Temp Pulse Resp B/P (MAP) Pulse Ox O2 Delivery O2 Flow Rate FiO2 05/26/19 08:08 72 107/59 05/26/19 08:00 97.1 18 96 Room Air 05/24/19 04:43 4.0 I&O- Last 24 Hours up to 6 AM 05/26/19 06:00 Intake Total 2820 ml Output Total 310 ml Balance 2510 ml JAKOB SPARKS DO May 26, 2019 10:56
[2019-05-26 12:00] VITALS: BP 113/54
[2019-05-26] MEDS: SLF 3 ML SYR IV SCH ×2 (13:01→21:26)
[2019-05-26 14:06] LABS: BODY FLUID CULTURE Not indicated. (.); ORGANISM ID Not indicated. (.); SPECIMEN SOURCE Urine (.); URINE STREP PNEUMONIAE ANTIGEN Negative (Negative)
[2019-05-26 16:00] VITALS: BP 116/55
[2019-05-26] MEDS: RIVAROXABAN 20 MG TAB (XARELTO) PO SCH (17:48)
[2019-05-26 20:00] VITALS: BP 119/69
[2019-05-26] MEDS: MIRTAZAPINE 7.5MG PER 1/2 TABLET PO SCH (21:25)
[2019-05-27] VITALS: BP 116/58
[2019-05-27 04:00] VITALS: BP 125/58
[2019-05-27] MEDS: LevoFLOXacin 750 MG TABLET PO SCH (05:08)
[2019-05-27] MEDS: SLF 3 ML SYR IV SCH ×3 (05:08→20:36)
[2019-05-27 05:55] LABS: HEMATOCRIT 31.1 % (42.0-52.0); MEAN CORPUSCULAR HEMOGLOBIN 29.2 pg (27.0-33.0); MEAN CORPUSCULAR HGB CONC 32.2 g/dl (32.0-36.5); MEAN CORPUSCULAR VOLUME 90.9 fl (80.0-96.0); PLATELET COUNT, AUTOMATED 120 10^3/uL (150-450); RED BLOOD COUNT 3.42 10^6/uL (4.30-6.10); WHITE BLOOD COUNT 6.7 10^3/uL (4.0-10.0)
--- NOTE | 2019-05-27 06:03 | IPNPDOC ---
Date Seen The patient was seen on 05/27/19. Progress Note Rn called at 0558am, pt has only had 80 ml urine output since midnight, bladderscan at 0530 93 cc. Echo: 65% EF plan: ns 250 ml iv bolus. monitor urine output encourage oral fluid intake. VS, I&O, 24H, Fishbone Vital Signs/I&O Vital Signs Date Time Temp Pulse Resp B/P (MAP) Pulse Ox O2 Delivery O2 Flow Rate FiO2 05/27/19 00:00 97.0 64 16 116/58 (77) 92 Room Air 05/24/19 04:43 4.0 I&O- Last 24 Hours up to 6 AM 05/27/19 06:00 Intake Total 480 ml Output Total 555 ml Balance -75 ml Laboratory Data 24H LABS Laboratory Tests 2 05/27/19 05:45: Nucleated Red Blood Cells % (auto) 0.0 CBC/BMP Laboratory Tests 05/27/19 05:45 Microbiology Microbiology 05/23/19 Urine Culture - Final, Complete 05/23/19 Blood Culture - Preliminary, Resulted No Growth after 72 hours. All specime... 05/23/19 Blood Culture - Preliminary, Resulted No Growth after 72 hours. All specime... ASHLEY CRESPO MD May 27, 2019 06:03
[2019-05-27] MEDS ORDERED: NS 250 ML IV ONE (06:15)
[2019-05-27 06:23] LABS: BLOOD UREA NITROGEN 19 MG/DL (7-18); CALCIUM LEVEL 7.9 MG/DL (8.8-10.2); CARBON DIOXIDE LEVEL 27 MEQ/L (21-32); CHLORIDE LEVEL 109 MEQ/L (98-107); CREATININE FOR GFR 0.87 MG/DL (0.70-1.30); GLOMERULAR FILTRATION RATE > 60.0 (>35); GLUCOSE, FASTING 58 MG/DL (70-100); MAGNESIUM LEVEL 1.8 MG/DL (1.8-2.4); SODIUM LEVEL 141 MEQ/L (136-145)
[2019-05-27] MEDS ORDERED: DEXTROSE 50% 50 ML VIAL IV ONE (06:50)
[2019-05-27] MEDS ORDERED: DEXTROSE 50% 50 ML SYRINGE As Ordered ONE (06:55)
[2019-05-27 08:00] VITALS: BP 109/58
--- NOTE | 2019-05-27 09:03 | REP ---
Examination Requested: Cookie Swallow Reason For Exam: Possible aspiration pneumonia The procedure was performed by PHUONG Craig, under the direct supervision of Dr. Felipe. The procedure was performed with Arlene Meade /Babs Baker from speech pathology present. 5 ml aliquots of thin, pudding, mixed fruit, soft food, hard food and pill consistency barium was administered. No penetration or aspiration was visualized throughout the course of the exam. The detailed report of this examination will be provided by speech pathology. 2.5 minutes of fluoroscopy time was utilized for this procedure. Reviewed by PHUONG Leon 05/24/2019 01:45 P Electronically Signed by Ovi Felipe MD 05/27/2019 08:55 A
[2019-05-27 09:26] LABS: FOLATE 9.8 NG/ML (>5.4)
[2019-05-27] MEDS: levETIRAcetam 250MG TABLET (KEPPRA) PO SCH ×2 (10:12→20:36)
[2019-05-27] MEDS: IRON POLYSAC (NIFEREX) 150 MG CAP PO SCH ×2 (10:12→20:35)
[2019-05-27] MEDS: DIVALPROEX 500MG *ER* TAB PO SCH ×2 (10:13→20:35)
[2019-05-27] MEDS: PANTOPRAZOLE 40MG TAB (PROTONIX) PO SCH (10:13)
[2019-05-27] MEDS: METOPROLOL TART 25 MG TABLET PO SCH ×2 (10:13→20:34)
[2019-05-27] MEDS: CitaloPRAM (CeleXA) 10 MG TABLET PO SCH (10:13)
[2019-05-27] MEDS ORDERED: SODIUM CHLORIDE 0.45% 1000 ML IV ONE (11:15)
[2019-05-27 12:00] VITALS: BP_SYST 100; BP_SYST 103; BP_DIAS 53; BP_DIAS 62
[2019-05-27] MEDS: D5W/0.45% SODIUM CHLORIDE 1,000 ML IV SCH (13:11)
--- NOTE | 2019-05-27 13:27 | IPNPDOC ---
Text Note Date of Service The patient was seen on 05/27/19. NOTE Subjective: No any acute events overnight. Patient denies fever, chills, nausea, vomiting, palpitations, chest pain. Pateitn refsing to work with PT. Not eating any food. Says does not taste good. Objective: VITAL SIGNS: Please see below. GENERAL APPEARANCE: not in apparent distress HEENT: Normocephalic, atraumatic. Mucous members moist and pink NECK: No JVD, No thyromegaly. CARDIOVASCULAR: Regular rate and rhythm. No murmurs, rubs or gallops. Radial pulses are intact. LUNGS: Diminished lung sounds, bibasal crackles. ABDOMEN: Abdomen is soft and nontender. Nrmal bowel sounds. MUSCULOSKELETAL: Range of motion is intact in all 4 extremities, bilateral arm swelling. No lower ex edema. NEUROLOGICAL: Cranial nerves II-12 are grossly intact. Speech is not dysarthric Labs and Radiology : reviewed. Assessment/Plan: Patient is 83 years old male with past history of seizures, anxiety, posttraumatic stress disorder, hypertension, frequent falls presented hospital with atrial fibrillation with rapid ventricular rate and altered mental status. Patient was transferred from [facility] when he developed confusion. In emergency room patient was found to have any new onset of atrial fibrillation with rapid ventricular rate, white blood count of 14.4, hemoglobin 13.1, po tassium 5, TSH within normal limit, BMP 4400, troponin negative, creatinine 1.24. CT chest moderate right consolidation. Abdominal CT showed diverticulosis without obvious acute diverticulitis. Patient received treatment with broad- spectrum antibiotics. Await PT/OT evaluation for placement Sepsis Resolved Most likely secondary to pneumonia, community-acquired versus aspiration Speech evaluation positive for oropharyngeal dysfunction. Diet was modified modified barium swallow negative for any aspiration. Blood culture negative, sputum culture pending Respiratory panel negative MRSA negative recieved 2 days of vanco anc zosyn, now on levofloxacin. Pneumonia CT scan showed a right lower lung infiltrate most likely secondary to aspiration Sputum culture, urine antigen for Streptococcus and Legionella pending Incentive spirometry Inhalers Aspiration precaution levofloxacin by mouth Hypoglycemia de to poor oral intake will start on dextrose infusion Diminished urine otput mccauley in place dark colored urine due to por intake will give IV bolus. Atrial fibrillation with RVR Resolved, converted to sinus rhythm on telemetry. Currently, heart rate is under control ON metoprolol Targeted oral anticoagulation initiated, I will defer continuation of anticoagulation therapy to primary care physician in the outpatient settings. Patient had a history of multiple falls Echo showed ejection fraction 65% without diastolic abnormalities Acute kidney injury Resolved Most likely prerenal secondary to dehydration Seizures Seizure precaution Continue home meds Acute Metabolic encephalopathy Resolved Most likely secondary to sepsis, dehydration Normocytic anemia probably from chronic disease. Check stool for occult blood pending Iron panel showed low iron, will check ferritin. If greater than 100 then no iron deficiency. B12 and folate not low. Hiatal hernia CT chest shows Circumferential thickening of the mid/distal esophagus with moderate hiatal hernia. will need EGD. VTE Prophylaxis Ordered?: Yes VS,Fishbone, I+O VS, Fishbone, I+O Laboratory Tests 05/27/19 05:45 Vital Signs Date Time Temp Pulse Resp B/P (MAP) Pulse Ox O2 Delivery O2 Flow Rate FiO2 05/27/19 12:00 97.0 64 18 100/53 (69) 94 Room Air 05/24/19 04:43 4.0 I&O- Last 24 Hours up to 6 AM 05/27/19 06:00 Intake Total 480 ml Output Total 555 ml Balance -75 ml NANY WESTBROOK MD May 27, 2019 13:27
[2019-05-27 13:53] LABS: FERRITIN 393 NG/ML (26-388)
[2019-05-27 14:00] VITALS: BP 103/62
[2019-05-27] MEDS: RIVAROXABAN 20 MG TAB (XARELTO) PO SCH (18:21)
[2019-05-27 20:00] VITALS: BP 99/54
[2019-05-27] MEDS: MIRTAZAPINE 7.5MG PER 1/2 TABLET PO SCH (20:36)
[2019-05-28 04:00] VITALS: BP 104/55
[2019-05-28] MEDS: LevoFLOXacin 750 MG TABLET PO SCH (05:04)
[2019-05-28] MEDS: SLF 3 ML SYR IV SCH ×3 (05:05→20:30)
[2019-05-28 05:18] LABS: HEMATOCRIT 29.7 % (42.0-52.0); HEMOGLOBIN 9.6 g/dl (13.5-17.5); MEAN CORPUSCULAR HEMOGLOBIN 29.2 pg (27.0-33.0); MEAN CORPUSCULAR HGB CONC 32.3 g/dl (32.0-36.5); MEAN CORPUSCULAR VOLUME 90.3 fl (80.0-96.0); PLATELET COUNT, AUTOMATED 119 10^3/uL (150-450); RED BLOOD COUNT 3.29 10^6/uL (4.30-6.10); WHITE BLOOD COUNT 5.9 10^3/uL (4.0-10.0)
[2019-05-28 05:29] LABS: BLOOD UREA NITROGEN 14 MG/DL (7-18); CALCIUM LEVEL 7.7 MG/DL (8.8-10.2); CARBON DIOXIDE LEVEL 27 MEQ/L (21-32); CHLORIDE LEVEL 109 MEQ/L (98-107); GLOMERULAR FILTRATION RATE > 60.0 (>35); GLUCOSE, FASTING 74 MG/DL (70-100); MAGNESIUM LEVEL 1.6 MG/DL (1.8-2.4); POTASSIUM SERUM 3.7 MEQ/L (3.5-5.1); SODIUM LEVEL 140 MEQ/L (136-145)
[2019-05-28] MEDS ORDERED: MAG SULF 1GM/100ML (MAG RUN) 1 GM in IV 1 EA IV ONE (05:45)
[2019-05-28] MEDS: D5W/0.45% SODIUM CHLORIDE 1,000 ML IV SCH (06:48)
[2019-05-28 07:50] VITALS: BP 103/54
[2019-05-28] MEDS: PANTOPRAZOLE 40MG TAB (PROTONIX) PO SCH (09:00)
[2019-05-28] MEDS: levETIRAcetam 250MG TABLET (KEPPRA) PO SCH ×2 (09:00→20:29)
[2019-05-28] MEDS: METOPROLOL TART 25 MG TABLET PO SCH ×2 (09:00→20:46)
[2019-05-28] MEDS: DIVALPROEX 500MG *ER* TAB PO SCH ×2 (09:01→20:30)
[2019-05-28] MEDS: CitaloPRAM (CeleXA) 10 MG TABLET PO SCH (09:01)
--- NOTE | 2019-05-28 10:54 | IPNPDOC ---
Text Note Date of Service The patient was seen on 05/28/19. NOTE Subjective: No any acute events overnight. Patient denies fever, chills, nausea, vomiting, palpitations, chest pain. Patient refusing to work with PT. Not eating any food. Says does not taste good. Objective: VITAL SIGNS: Please see below. GENERAL APPEARANCE: not in apparent distress HEENT: Normocephalic, atraumatic. Mucous members moist and pink NECK: No JVD, No thyromegaly. CARDIOVASCULAR: Regular rate and rhythm. No murmurs, rubs or gallops. Radial pulses are intact. LUNGS: Diminished lung sounds, bibasal crackles. ABDOMEN: Abdomen is soft and nontender. Nrmal bowel sounds. MUSCULOSKELETAL: Range of motion is intact in all 4 extremities, bilateral arm swelling. EXTREMITIES: Bipedal edema. Edema in both upper extremities. NEUROLOGICAL: Cranial nerves II-12 are grossly intact. Speech is not dysarthric Labs and Radiology : reviewed. Assessment/Plan: Patient is 83 years old male with past history of seizures, anxiety, posttraumatic stress disorder, hypertension, frequent falls presented hospital with atrial fibrillation with rapid ventricular rate and altered mental status. Patient was transferred from [facility] when he developed confusion. In emergency room patient was found to have any new onset of atrial fibrillation with rapid ventricular rate, white blood count of 14.4, hemoglobin 13.1, potassium 5, TSH within normal limit, BMP 4400, troponin negative, creatinine 1.24. CT chest moderate right consolidation. Abdominal CT showed diverticulosis without obvious acute diverticulitis. Patient received treatment with broad- spectrum antibiotics. Await PT/OT evaluation for placement Sepsis Resolved Most likely secondary to pneumonia, community-acquired versus aspiration Speech evaluation positive for oropharyngeal dysfunction. Diet was modified modified barium swallow negative for any aspiration. Blood culture negative, sputum culture pending Respiratory panel negative MRSA negative received 2 days of vanco anc zosyn, now on levofloxacin. Pneumonia CT scan showed a right lower lung infiltrate most likely secondary to aspiration Sputum culture, urine antigen for Streptococcus and Legionella pending Incentive spirometry Inhalers Aspiration precaution levofloxacin by mouth Hypoglycemia due to poor oral intake encourage oral intake dietary consult will stop IVf. FS tid. Severe Protein calorie malnutrition Very Low albumin, bitemporal wasting, wasting of small muscles of hand. anasarca from hypoalbuminemia is probably giving a falsely high BMI. dietary consult. Diminished urine output mccauley in place dark colored urine due to por intake encourage oral intake Atrial fibrillation with RVR Resolved, converted to sinus rhythm on telemetry. Currently, heart rate is under control ON metoprolol Targeted oral anticoagulation initiated, I will defer continuation of anticoagulation therapy to primary care physician in the outpatient settings. Patient had a history of multiple falls Echo showed ejection fraction 65% without diastolic abnormalities Acute kidney injury Resolved Most likely prerenal secondary to dehydration Seizures Seizure precaution Continue home meds Acute Metabolic encephalopathy with underlying mild cognitive impairment. Resolved Most likely secondary to sepsis, dehydration Normocytic anemia probably from chronic disease. Check stool for occult blood pending Iron panel showed low iron, high ferritin, So no iron deficiency. B12 and folate not low. Hiatal hernia CT chest shows Circumferential thickening of the mid/distal esophagus with moderate hiatal hernia. will need EGD. Patient is WC bound with only stand to pivot at baseline and resident of [facility]. VTE Prophylaxis Ordered?: Yes Dispo: back to [place] once eating a little better and not having hypoglycemia. VS,Fishbone, I+O VS, Fishbone, I+O Laboratory Tests 05/28/19 04:48 05/28/19 04:49 Vital Signs Date Time Temp Pulse Resp B/P (MAP) Pulse Ox O2 Delivery O2 Flow Rate FiO2 05/28/19 09:00 69 103/54 05/28/19 07:50 97.4 18 93 Room Air 05/24/19 04:43 4.0 I&O- Last 24 Hours up to 6 AM 05/28/19 06:00 Intake Total 1640 ml Output Total 625 ml Balance 1015 ml NANY WESTBROOK MD May 28, 2019 10:54
[2019-05-28 12:00] VITALS: BP 119/60
[2019-05-28 16:00] VITALS: BP 114/72
[2019-05-28] MEDS: RIVAROXABAN 20 MG TAB (XARELTO) PO SCH (17:48)
[2019-05-28 20:00] VITALS: BP 107/64
[2019-05-28] MEDS: MIRTAZAPINE 7.5MG PER 1/2 TABLET PO SCH (20:30)
[2019-05-29 04:00] VITALS: BP 107/63
[2019-05-29 05:14] LABS: HEMATOCRIT 29.3 % (42.0-52.0); HEMOGLOBIN 9.6 g/dl (13.5-17.5); MEAN CORPUSCULAR HEMOGLOBIN 29.6 pg (27.0-33.0); MEAN CORPUSCULAR HGB CONC 32.8 g/dl (32.0-36.5); MEAN CORPUSCULAR VOLUME 90.4 fl (80.0-96.0); PLATELET COUNT, AUTOMATED 126 10^3/uL (150-450); RED BLOOD COUNT 3.24 10^6/uL (4.30-6.10); WHITE BLOOD COUNT 5.9 10^3/uL (4.0-10.0)
[2019-05-29 05:32] LABS: BLOOD UREA NITROGEN 11 MG/DL (7-18); CARBON DIOXIDE LEVEL 31 MEQ/L (21-32); CHLORIDE LEVEL 107 MEQ/L (98-107); CREATININE FOR GFR 0.74 MG/DL (0.70-1.30); GLOMERULAR FILTRATION RATE > 60.0 (>35); GLUCOSE, FASTING 74 MG/DL (70-100); MAGNESIUM LEVEL 1.5 MG/DL (1.8-2.4); POTASSIUM SERUM 3.9 MEQ/L (3.5-5.1); SODIUM LEVEL 140 MEQ/L (136-145)
[2019-05-29] MEDS: SLF 3 ML SYR IV SCH (06:08)
[2019-05-29] MEDS: MAG SULF 1GM/100ML (MAG RUN) 1 GM in IV 1 EA IV SCH ×2 (07:26→09:05)
[2019-05-29 08:00] VITALS: BP 98/58
[2019-05-29 08:12] VITALS: BP 98/58
[2019-05-29] MEDS: PANTOPRAZOLE 40MG TAB (PROTONIX) PO SCH (08:12)
[2019-05-29] MEDS: METOPROLOL TART 25 MG TABLET PO SCH (08:12)
[2019-05-29] MEDS: levETIRAcetam 250MG TABLET (KEPPRA) PO SCH (08:12)
[2019-05-29] MEDS: DIVALPROEX 500MG *ER* TAB PO SCH (08:12)
[2019-05-29] MEDS: CitaloPRAM (CeleXA) 10 MG TABLET PO SCH (08:12)
[2019-05-29] MEDS ORDERED: METO1TAB87 PO (09:57)
[2019-05-29] MEDS ORDERED: LASI20TA3 PO (10:02)
--- NOTE | 2019-05-29 10:23 | DS.PDOC ---
Discharge Summary General Date of Admission May 23, 2019 at 17:01 Date of Discharge 05/29/19 Discharge Summary PROCEDURES PERFORMED DURING STAY: [None]. DISCHARGE DIAGNOSES: Paroxysmal Aib with rvr Sepsis Pneumonia CAP Acute metabolic encephalopathy with underlying dementia LARISA SEVERE Protein calorie malnutrition Anasarca from hypoalbuminemia Recurrent hypoglycemia from poor oral intake Seizure disorder Normocytic anemia of chronic disease Hiatal hernia with thickening of mid to distal esophagus. GERD PTSD Chronic back pain H/o Urinary retention has mccauley in place H/o nondisplaced fracture of the right clavicle in April 2019 Recent history of diverticulitis in april 2019 treated at the [facility] COMPLICATIONS/CHIEF COMPLAINT: Atrial Fibrillation W Rvr Pneumonia. HISTORY OF PRESENT ILLNESS: See history and hysical HOSPITAL COURSE: Patient is 83 years old male with past history of seizures, anxiety, posttraumatic stress disorder, hypertension, frequent falls presented h ospital with atrial fibrillation with rapid ventricular rate and altered mental status. Patient was transferred from [facility] when he developed confusion. In emergency room patient was found to have any new onset of atrial fibrillation with rapid ventricular rate, white blood count of 14.4, hemoglobin 13.1, potassium 5, TSH within normal limit, BMP 4400, troponin negative, creatinine 1.24. CT chest moderate right consolidation. Abdominal CT showed diverticulosis without obvious acute diverticulitis. Patient received treatment with broad- spectrum antibiotics. Await PT/OT evaluation for placement Sepsis Resolved Most likely secondary to pneumonia, community-acquired versus aspiration Speech evaluation positive for oropharyngeal dysfunction. Diet was modified modified barium swallow negative for any aspiration. Blood culture negative, Respiratory panel negative MRSA negative received 2 days of vanco anc zosyn then levofloxacin for 3 days. antibiotics are finished. Pneumonia CT scan showed a right lower lung infiltrate most likely secondary to aspiration Sputum culture, urine antigen for Streptococcus and Legionella pending Incentive spirometry Inhalers Aspiration precaution finished antibiotics. Hypoglycemia due to poor oral intake encourage oral intake dietary consult will stop IVf. FS tid. Severe Protein calorie malnutrition Very Low albumin, bitemporal wasting, wasting of small muscles of hand. anasarca from hypoalbuminemia is probably giving a falsely high BMI. dietary recommendations instituted. Diminished urine output mccauley in place dark colored urine due to por intake encourage oral intake Atrial fibrillation with RVR Resolved, converted to sinus rhythm on telemetry. Currently, heart rate is under control ON metoprolol Targeted oral anticoagulation initiated, I will defer continuation of anticoagulation therapy to primary care physician in the outpatient settings. Patient had a history of multiple falls Echo showed ejection fraction 65% without diastolic abnormalities Acute kidney injury Resolved Most likely prerenal secondary to dehydration Seizures Seizure precaution Continue home meds Acute Metabolic encephalopathy with underlying mild cognitive impairment. Resolved Most likely secondary to sepsis, dehydration Normocytic anemia probably from chronic disease. Check stool for occult blood pending Iron panel showed low iron, high ferritin, So no iron deficiency. B12 and folate not low. Hiatal hernia CT chest shows Circumferential thickening of the mid/distal esophagus with moderate hiatal hernia. will possibly need EGD. outpatient follow up. Patient is WC bound with only stand to pivot at baseline and resident of [facility]. DISCHARGE MEDICATIONS: Please see below. ALLERGIES: Please see below. PHYSICAL EXAMINATION ON DISCHARGE: VITAL SIGNS: Please see below. GENERAL APPEARANCE: not in apparent distress HEENT: Normocephalic, atraumatic. Mucous members moist and pink NECK: No JVD, No thyromegaly. CARDIOVASCULAR: Regular rate and rhythm. No murmurs, rubs or gallops. Radial pulses are intact. LUNGS: Diminished lung sounds, bibasal crackles. ABDOMEN: Abdomen is soft and nontender. Nrmal bowel sounds. MUSCULOSKELETAL: Range of motion is intact in all 4 extremities, bilateral arm swelling. EXTREMITIES: Bipedal edema. Edema in both upper extremities. NEUROLOGICAL: Cranial nerves II-12 are grossly intact. Speech is not dysarthric LABORATORY DATA: Please see below. ACTIVITY: [As tolerated]. DIET: Soft mechanical , 2 gm sodium with ensure enlive with meals DISCHARGE PLAN: [facility] rehab DISCHARGE INSTRUCTIONS: Follow up with MD at [place] Follow up with GI and Urology at the [place]. DISCHARGE CONDITION: [Stable]. TIME SPENT ON DISCHARGE: 35 minutes. Vital Signs/I&Os Vital Signs Date Time Temp Pulse Resp B/P (MAP) Pulse Ox O2 Delivery O2 Flow Rate FiO2 05/29/19 08:12 84 98/58 05/29/19 08:00 97.2 18 91 Room Air 05/24/19 04:43 4.0 I&O- Last 24 Hours up to 6 AM 05/29/19 06:00 Intake Total 930 ml Output Total 1350 ml Balance -420 ml Laboratory Data Labs 24H Laboratory Tests 2 05/28/19 17:35: Bedside Glucose (Misc Panel) 75L 05/28/19 20:43: Bedside Glucose (Misc Panel) 117H 05/29/19 04:53: Nucleated Red Blood Cells % (auto) 0.0, Anion Gap 2L, Glomerular Filtration Rate > 60.0, Calcium Level 8.0L, Magnesium Level 1.5L CBC/BMP Laboratory Tests 05/29/19 04:53 FSBS Laboratory Tests Test 05/28/19 17:35 05/28/19 20:43 Range/Units Bedside Glucose (Misc Panel) 75 117 83-110 MG/DL Microbiology Microbiology 05/23/19 Urine Culture - Final, Complete 05/23/19 Blood Culture - Final, Complete NO GROWTH AFTER 5 DAYS 05/23/19 Blood Culture - Final, Complete NO GROWTH AFTER 5 DAYS Discharge Medications Scheduled Citalopram Hydrobromide (Celexa) 10 Mg Tablet, 10 MG PO DAILY, (Reported) Divalproex Sodium (Depakote ER) 500 Mg Tab, 500 MG PO BID, (Reported) Levetiracetam (Keppra) 750 Mg Tab, 1,500 MG PO BID, (Reported) Loratadine (Loratadine) 10 Mg Tablet, 10 MG PO DAILY, (Reported) Metoprolol Tartrate (Metoprolol Tartrate) 25 Mg Tablet, 12.5 MG PO BID Hold If SBP< 110 Mirtazapine (Mirtazapine) 7.5 Mg Tablet, 7.5 MG PO QHS, (Reported) Multivitamins (Thera M Plus Tablet) 1 Each Tablet, 1 TAB PO DAILY, (Reported) Naproxen (Naproxen) 250 Mg Tablet, 250 MG PO BID, (Reported) Nut.tx.gluc.intoler,Lac-Fr,Soy (Glucerna 1.2 Kevin) 237 Ml Liquid, 240 ML PO BID, (Reported) Pantoprazole Sodium (Pantoprazole Sodium) 40 Mg Tab, 40 MG PO DAILY, (Reported) Scheduled PRN Acetaminophen (Acetaminophen) 325 Mg Tablet, 650 MG PO Q4H PRN for PAIN / FEVER, (Reported) Bisacodyl (Dulcolax) 10 Mg Supp.rect, 10 MG [place] DAILY PRN for CONSTIPATION, (Reported) Milk Of Magnesia (Milk of Magnesia) 2,400 Mg/10 Ml Oral.susp, 10 ML PO DAILY PRN for CONSTIPATION, (Reported) Sodium Phosphate,Walsh-Dibasic (Enema) 133 Ml Enema, 1 BRITTANY [place] DAILY PRN for CONSTIPATION, (Reported) Allergies Coded Allergies: No Known Allergies (Verified , 10/26/18) NANY WESTBROOK MD May 29, 2019 10:23
== END 2019-05-29 11:40 | DRG 871 ==
LOC: M ED 13:39 → EDBD 13:39 → M ED INP 17:01 → ENRESERVTM 05-24 15:45 → ENRESERVDT 05-24 15:45 → M PCU 05-24 17:50
PROVIDERS: ADMIT Internal Medicine; ATTEND Internal Medicine Nephrology
DX: A41.9 Sepsis, unspecified organism (principal); G93.41 Metabolic encephalopathy; E43 Unspecified severe protein-calorie malnutrition; J69.0 Pneumonitis due to inhalation of food and vomit; N17.9 Acute kidney failure, unspecified; I48.0 Paroxysmal atrial fibrillation; R56.9 Unspecified convulsions; F41.9 Anxiety disorder, unspecified; F43.10 Post-traumatic stress disorder, unspecified; I10 Essential (primary) hypertension; R29.6 Repeated falls; R41.82 Altered mental status, unspecified; Z79.899 Other long term (current) drug therapy; H70.12 Chronic mastoiditis, left ear; Z90.49 Acquired absence of other specified parts of digestive tract; Z87.891 Personal history of nicotine dependence; D72.829 Elevated white blood cell count, unspecified; R00.0 Tachycardia, unspecified; R06.82 Tachypnea, not elsewhere classified; D63.8 Anemia in other chronic diseases classified elsewhere; E16.2 Hypoglycemia, unspecified; K44.9 Diaphragmatic hernia without obstruction or gangrene; E86.0 Dehydration; R13.12 Dysphagia, oropharyngeal phase; R33.9 Retention of urine, unspecified; F03.90 Unspecified dementia, unspecified severity, without behavioral disturbance, psychotic disturbance, mood disturbance, and anxiety; E88.09 Other disorders of plasma-protein metabolism, not elsewhere classified; K21.9 Gastro-esophageal reflux disease without esophagitis; G89.29 Other chronic pain; M54.9 Dorsalgia, unspecified

== ENCOUNTER → 2019-05-23 | Outpatient (REF) ==
[~2019-05-23] MED LIST changes: +APAP325T4 PO; +DULC10SU2 PR; +ENEMENE PR; +GLUC1LIQ7 PO; +LASI20TA3 PO; +LORA-436 PO; -LORA0.5T11 PO; +LORA0.5T5 PO; +MACR100C43 PO; +METO1TAB87 PO; +MIRT1TAB PO; +MOM30SS PO; +NAPR250T4 PO; +VITMTA PO
--- NOTE | 2019-05-23 12:45 | REP ---
Clinical: Shortness of breath . Comparison: 10/26/2018 . Findings: The mediastinum and cardiac silhouette are stable and within normal limits for portable technique. Small area of infiltrate involving the lateral left lower lobe cannot be excluded. No effusion. No pneumothorax. Impression: Subtle left lower lobe infiltrate versus chronic change. Electronically Signed by Tuan Rufifn MD 05/23/2019 12:36 P
[2019-05-23 13:09] LABS: HEMATOCRIT 40.5 % (42.0-52.0); MEAN CORPUSCULAR HEMOGLOBIN 29.7 pg (27.0-33.0); MEAN CORPUSCULAR HGB CONC 32.1 g/dl (32.0-36.5); MEAN CORPUSCULAR VOLUME 92.5 fl (80.0-96.0); PLATELET COUNT, AUTOMATED 138 10^3/uL (150-450); RED BLOOD COUNT 4.38 10^6/uL (4.30-6.10); WHITE BLOOD COUNT 13.8 10^3/uL (4.0-10.0)
[2019-05-23 13:47] LABS: ALBUMIN 1.9 GM/DL (3.2-5.2); BILIRUBIN,TOTAL 0.3 MG/DL (0.2-1.0); CALCIUM LEVEL 8.6 MG/DL (8.8-10.2); CREATININE FOR GFR 1.26 MG/DL (0.70-1.30); GLOMERULAR FILTRATION RATE 58.2 (>35); POTASSIUM SERUM 4.6 MEQ/L (3.5-5.1); VALPROIC ACID (DEPAKOTE) 58.7 UG/ML (50.0-100.0)
--- NOTE | 2019-05-23 22:26 | ECGEPIP ---
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
== END ==
LOC: SKLAB5 11:42
PROVIDERS: ATTEND Internal Medicine
DX: R53.83 Other fatigue (principal); R00.0 Tachycardia, unspecified; R06.02 Shortness of breath

== ENCOUNTER → 2019-06-04 | Outpatient (REF) | payer OTHER, MEDICARE ==
[~2019-06-04] MED LIST changes: +APAP325T4 PO; +DULC10SU2 PR; +ENEMENE PR; +ENSU1LIQ36 PO; +GLUC1LIQ7 PO; +KEPP1TAB PO; +LASI20TA3 PO; +LORA-436 PO; +MACR100C43 PO; +METF-729 PO; +METO1TAB87 PO; +MIRT1TAB PO; +MOM30SS PO; +NAPR250T4 PO; +OMEP40CA97 PO; +SUCR1ORA PO; +VITMTA PO; +ZOFR4TAB16 PO
[2019-06-04 17:45] LABS: HEMOGLOBIN A1c 4.5 %
== END ==
LOC: SKLAB5 14:02
PROVIDERS: ATTEND Internal Medicine
DX: E83.42 Hypomagnesemia (principal); E16.1 Other hypoglycemia

== ENCOUNTER 2019-06-23 22:04 | Inpatient (IN) | payer OTHER, MEDICARE ==
[~2019-06-23] VITALS: Ht 167.6 cm; Wt 59.0 kg
[~2019-06-23 22:04] MED LIST changes: -ENSU1LIQ36 PO; -KEPP1TAB PO; -METF-729 PO; -OMEP40CA97 PO; -SUCR1ORA PO; -ZOFR4TAB16 PO
[2019-06-23] MEDS ORDERED: NS 1,000 ML IV ONE (22:15)
[2019-06-23] MEDS ORDERED: ONDANSETRON 4MG/2ML VIAL (J2405) IV ONE (22:15)
[2019-06-23] MEDS ORDERED: PANTOPRAZOLE 40MG INJ (PROTONIX) (C9113) IV ONE (22:15)
[2019-06-23 23:30] LABS: BASO % 0.1 % (0.0-1.0); HEMATOCRIT 37.6 % (42.0-52.0); HEMOGLOBIN 11.8 g/dl (13.5-17.5); LYMPH # 0.7 10^3/uL (1.5-5.0); LYMPH % 7.8 % (24.0-44.0); MEAN CORPUSCULAR HEMOGLOBIN 29.3 pg (27.0-33.0); MEAN CORPUSCULAR HGB CONC 31.4 g/dl (32.0-36.5); MEAN CORPUSCULAR VOLUME 93.3 fl (80.0-96.0); MONO # 0.5 10^3/uL (0.0-0.8); MONO % 6.1 % (0.0-5.0); NEUTROPHILS # 7.5 10^3/uL (1.5-8.5); NEUTROPHILS % 85.7 % (36.0-66.0); PLATELET COUNT, AUTOMATED 143 10^3/uL (150-450); RED BLOOD COUNT 4.03 10^6/uL (4.30-6.10); WHITE BLOOD COUNT 8.8 10^3/uL (4.0-10.0)
[2019-06-23 23:41] LABS: INR 1.28; PROTHROMBIN TIME 15.7 SECONDS (11.8-14.0)
[2019-06-23 23:52] LABS: ALT/SGPT < 6 U/L (12-78); BILIRUBIN,DIRECT 0.2 MG/DL (0.0-0.2); BILIRUBIN,TOTAL 0.4 MG/DL (0.2-1.0); BLOOD UREA NITROGEN 32 MG/DL (7-18); CALCIUM LEVEL 8.8 MG/DL (8.8-10.2); CARBON DIOXIDE LEVEL 32 MEQ/L (21-32); CHLORIDE LEVEL 103 MEQ/L (98-107); CREATININE FOR GFR 0.96 MG/DL (0.70-1.30); GLOMERULAR FILTRATION RATE > 60.0 (>35); GLUCOSE, FASTING 104 MG/DL (70-100); LIPASE 64 U/L (73-393); POTASSIUM SERUM 4.2 MEQ/L (3.5-5.1); SODIUM LEVEL 142 MEQ/L (136-145); TOTAL PROTEIN 6.4 GM/DL (6.4-8.2)
[2019-06-23] MEDS ORDERED: ZOFR4TAB16 PO (23:57)
[2019-06-23] MEDS ORDERED: ENSU1LIQ36 PO (23:57)
[2019-06-23] MEDS ORDERED: KEPP1TAB PO (23:57)
[2019-06-23] MEDS ORDERED: METO1TAB87 PO (23:57)
[2019-06-23] MEDS ORDERED: METF-729 PO (23:57)
[2019-06-24] MEDS ORDERED: ISOVUE-370 76% 100ML VIAL (Q9967) As Ordered ONE (00:04)
--- NOTE | 2019-06-24 01:00 | REPVR ---
PROCEDURE INFORMATION: Exam: CT Abdomen And Pelvis With Contrast Exam date and time: 06/23/2019 12:25 AM Age: 83 years old Clinical indication: Abdominal pain; Additional info: Gen abd pain, hematemesis TECHNIQUE: Imaging protocol: Computed tomography of the abdomen and pelvis with intravenous contrast. Radiation optimization: All CT scans at this facility use at least one of these dose optimization techniques: automated exposure control; mA and/or kV adjustment per patient size (includes targeted exams where dose is matched to clinical indication); or iterative reconstruction. Contrast material: ISO 370; Contrast volume: 100 ml; Contrast route: IV; COMPARISON: CT ABD/PEL W/IV CONTRAST ONLY 05/23/2019 3:37 PM FINDINGS: Lungs: Extensive tree-in-bud opacities in the bilateral lower lobes suggestive of bronchiolitis. Linear atelectasis or scarring in the bilateral lower lobes. Focal small subpleural airspace consolidations more pronounced on the right. Trace left pleural effusion. Linear atelectasis or scarring in the right middle lobe. Mediastinum: Moderate hiatal hernia. Liver: Stable focal indeterminate subcapsular low-attenuation lesions in the right and left hepatic lobes. Gallbladder and bile ducts: Cholelithiasis. No evidence of acute cholecystitis. Pancreas: Normal. No ductal dilation. Spleen: Normal. No splenomegaly. Adrenals: Normal. No mass. Kidneys and ureters: Simple bilateral renal cysts measuring up to 2 cm in diameter. Stomach and bowel: Diverticulosis of the colon. No evidence of acute diverticulitis. Moderate fecal load in the rectum. Appendix: No evidence of appendicitis. Intraperitoneal space: Unremarkable. No free air. No significant fluid collection. Vasculature: Atherosclerotic disease of the coronary arteries. Atherosclerotic disease of the abdominal aorta. Suggestion of a filling defect in the lateral segmental branch of the right lower lobe pulmonary artery concerning for pulmonary embolic disease. Lymph nodes: Unremarkable. No enlarged lymph nodes. Bladder: Degroot balloon catheter in the urinary bladder. Reproductive: Mildly enlarged prostate. Bones/joints: Multilevel degenerative disease and facet hypertrophy in the lumbar spine most pronounced at L5-S1. Soft tissues: Unremarkable. IMPRESSION: Suggestion of a filling defect in the lateral segmental branch of the right lower lobe pulmonary artery concerning for pulmonary embolic disease. Suggest further characterization with CT pulmonary angiography if clinically warranted. Extensive tree-in-bud opacities in the bilateral lower lobes suggestive of bronchiolitis. Linear atelectasis or scarring in the bilateral lower lobes. Focal small subpleural airspace consolidations more pronounced on the right. Cholelithiasis. No evidence of acute cholecystitis. Diverticulosis of the colon. No evidence of acute diverticulitis. Moderate fecal load in the rectum. COMMENTS: Consistent with the [employer]'s Incidental Findings Committee white paper (J Am Kristian Radiol 2018): Any incidental cystic renal lesion classified in this report as too small to characterize or simple appearing is likely a benign cyst. No follow-up imaging is recommended for these lesions per consensus recommendations based on imaging criteria. Electronically signed by: Ino Levy On 06/24/2019 00:59:36 AM
[2019-06-24] MEDS ORDERED: NS 1,000 ML IV SCH ×2 (01:36)
[2019-06-24] MEDS ORDERED: ACETAMINOPHEN TAB 650MG DOSE (2X325MG) PO PRN (01:45)
[2019-06-24] MEDS ORDERED: MOM 30ML SUSPENSION UDC PO PRN (01:45)
[2019-06-24] MEDS ORDERED: ONDANSETRON 4 MG TAB (S0181) PO PRN (01:45)
[2019-06-24] MEDS ORDERED: BISACODYL 10 MG SUPP PR PRN (01:45)
--- NOTE | 2019-06-24 01:54 | HPEPDOC ---
General Date of Admission Date of Service: Jun 24, 2019 Chief Complaint The patient is a 83-year-old male admitted with a reason for visit of coffee ground emesis Source: Patient, RN/MD, skilled nursing records Exam Limitations: Mild cognitive slowing Timing/Duration: 4-6 hours Associated Symptoms: Nausea History of Present Illness 83-year-old male residential patient with past medical history of seizure di sorder, recent pneumonia, paroxysmal A. fib, GERD, cognitive impairment presents from the residential for1 episode of large volume coffee ground emesis. As per residential records and ER endorsement, patient had 1 episode of coffee-ground emesis today. Patient is unable to recall events due to his likely dementia. As per records, patient was also noted to be desaturating at that time. Patient was brought to the ER by ambulance and upon evaluation in the ER, patient noted to be tachycardic but no further episodes of vomiting was noted during his stay. Patient does not recall any of these events and currently states that he feels fine. He does have some complaints of abdominal discomfort in his lower quadrants but isn't bothering him for the past several months. he denies any recent fevers, chills, shortness of breath, chest pain, headaches, visual changes, leg swelling. Patient is currently not on any anticoagulation or NSAIDs as per review of his medications. Patient has not had prior GI bleed in the past as per our records. Patient currently resides in a residential. She does not smoke, drink, has history of IV drug abuse. 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 His daughter is his healthcare proxy and he is currently DNR with trial period of intubation being okay. Patient to be admitted for further evaluation given his suspected GI bleed. Home Medications Scheduled Citalopram Hydrobromide (Celexa) 10 Mg Tablet, 10 MG PO DAILY, (Reported) Divalproex Sodium (Depakote) 500 Mg Tablet.dr, 500 MG PO BID, (Reported) Lactose-Reduced Food (Ensure Enlive) 237 Ml Liquid, 237 ML PO TID, (Reported) Levetiracetam (Keppra) 500 Mg Tablet, 1,000 MG PO BID, (Reported) Metformin HCl (Metformin ER Osmotic) 500 Mg Tab.er.24, 500 MG PO DAILY, (Reported) Metoprolol Tartrate (Metoprolol Tartrate) 25 Mg Tablet, 12.5 MG PO BID, (Reported) Multivitamins (Thera M Plus Tablet) 1 Each Tablet, 1 TAB PO DAILY, (Reported) Pantoprazole Sodium (Pantoprazole Sodium) 40 Mg Tab, 40 MG PO DAILY, (Reported) Scheduled PRN Acetaminophen (Acetaminophen) 325 Mg Tablet, 650 MG PO Q4H PRN for PAIN / FEVER, (Reported) Bisacodyl (Dulcolax) 10 Mg Supp.rect, 10 MG [place] DAILY PRN for CONSTIPATION, (Reported) Milk Of Magnesia (Milk of Magnesia) 2,400 Mg/10 Ml Oral.susp, 10 ML PO DAILY PRN for CONSTIPATION, (Reported) Ondansetron HCl (Zofran) 4 Mg Tablet, 4 MG PO Q6H PRN for NAUSEA OR VOMITING, (Reported) Sodium Phosphate,Boyle-Dibasic (Enema) 133 Ml Enema, 1 BRITTANY [place] DAILY PRN for CONSTIPATION, (Reported) Allergies Coded Allergies: Influenza Virus Vaccines (Verified Allergy, Unknown, 06/23/19) Past Medical History Medical History Seizure disorder, GERD, proximal A. 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 Currently resides in a residential. A-FIB/CHADSVASC A-FIB History Current/History of A-Fib/PAF?: Yes Current PO Anticoag Therapy: No Age/Risk Factor Scoring CHADSVASC: CHADSVASC Response (Comments) Value Age Risk Factor Age >/= 75 years old 2 Gender Risk Factor Male 0 Hx of CHF No 0 Hx of HTN No 0 Hx of Stroke/TIA/or VTE No 0 Hx of Diabetes Yes 1 Hx of Vascular Disease No 0 Total 3 Treatment Treatment ordered: NONE, Holding Other (suspected GI bleed) Reason Anticoagulant not given: Current bleeding Other reason anticoagulant not: patient is at high risk for falls as per previous medical notes Review of Systems Constitutional: Denies: Chills, Fever, Malaise, Night Sweats, Weakness, Fatig ue, Weight Loss, Lethargy, Other Eyes: Denies: Pain, Vision change ENT: Denies: Head Aches, Ear Pain, Sinus Congestion, Sore Throat Skin: Denies: Rash, Lesions, Bruising Pulmonary: Denies: Dyspnea, Cough, Pleuritic Chest Pain Cardiovascular: Denies: Chest Pain, Palpitations, Orthopnea, Edema, Lt Headedness Gastrointestinal: Reports: Nausea, Abdominal Pain; Denies: Vomiting, Diarrhea, Constipation Genitourinary: Reports: Other Symptoms (Degroot is in place) Hematologic: Denies: Bruising Musculoskeletal: Reports: Back Pain Neurological: Denies: Weakness, Numbness, Change in speech Psych: Reports: Mood Normal Physical Examination General Exam: Positive: Alert, Cooperative, No Acute Distress, Other (pleasant white male, appears to be stated age. Answers questions appropriately. Alert and oriented to self, place, year but not current events.) Eye Exam: Positive: PERRLA, Conjunctiva & lids normal, EOMI; Negative: Sclera icteric ENT Exam: Positive: Atraumatic; Negative: Mucous membr. moist/pink (appears clinically dry) Neck Exam: Positive: Supple; Negative: JVD, thyromegaly Chest Exam: Positive: Clear to auscultation, Normal air movement; Negative: Wheezing Heart Exam: Positive: Tachycardic, Irregular Rhythm; Negative: Gallops, Murmurs, Rubs Abdomen Exam: Positive: Normal bowel sounds, Soft; Negative: Tenderness, Hepatospenomegaly, Mass Extremity Exam: Negative: Clubbing, Cyanosis, Edema Skin Exam: Positive: Nl turgor and temperature Neuro Exam: Positive: Normal Speech, Strength at 5/5 X4 ext, Normal Tone, Sensation Intact (gait was not assessed) Psych Exam: Positive: Mental status NL, Mood NL, Oriented x 3 Vital Signs Vital Signs Date Time Temp Pulse Resp B/P (MAP) Pulse Ox O2 Delivery O2 Flow Rate FiO2 06/24/19 01:19 113 86 06/24/19 00:31 107/57 (74) 06/23/19 22:34 97.0 06/23/19 22:10 20 Room Air Laboratory Data Labs 24H Laboratory Tests 2 06/23/19 22:56: Urine Color PALLAVI, Urine Appearance HAZY, Urine pH 5.0, Urine Specific [place] 1.024, Urine Protein 1+H, Urine Glucose (UA) NEGATIVE, Urine Ketones 1+H, Urine Blood 2+H, Urine Nitrite NEGATIVE, Urine Bilirubin NEGATIVE, Urine Urobilinogen 4.0H, Urine Leukocyte Esterase TRACEH, Urine WBC (Auto) 26H, Urine RBC (Auto) 81H, Urine Hyaline Casts (Auto) 0, Urine Bacteria (Auto) NEGATIVE, Urine Squamous Epithelial Cells 0, Urine Calcium Oxalate Cryst (Auto) SMALL, Urine Mucus (Auto) SMALL, Urine Sperm (Auto) 06/23/19 23:25: Immature Granulocyte % (Auto) 0.3, Neutrophils (%) (Auto) 85.7H, Lymphocytes (%) (Auto) 7.8L, Monocytes (%) (Auto) 6.1H, Eosinophils (%) (Auto) 0.0, Basophils (%) (Auto) 0.1, Neutrophils # (Auto) 7.5, Lymphocytes # (Auto) 0.7L, Monocytes # (Auto) 0.5, Eosinophils # (Auto) 0.0, Basophils # (Auto) 0.0, Nucleated Red Blood Cells % (auto) 0.0, Prothrombin Time 15.7H, Prothromb Time International Ratio 1.28, Anion Gap 7L, Glomerular Filtration Rate > 60.0, Calcium Level 8.8, Total Bilirubin 0.4, Direct Bilirubin 0.2, Aspartate Amino Transf (AST/SGOT) 16, Alanine Aminotransferase (ALT/SGPT) < 6L, Alkaline Phosphatase 55, Total Protein 6.4, Albumin 2.0L, Albumin/Globulin Ratio 0.45L, Lipase 64L CBC/BMP Laboratory Tests 06/23/19 23:25 Microbiology Microbiology 06/23/19 Urine Culture, Received Pending RAD Interpretation STUDY: CT abdomen pelvis Rad Actions: Report Reviewed, Films Reviewed, Discussed with the pt RAD Interpretation: Other Result Comments: (possible filling defects noted in the right lower lobe pulmonary arteries, no extravasation of contrast noted) Assessment/Plan 83-year-old male with multiple medical comorbidities presents with suspected upper GI bleed and coffee-ground emesis. As per ER report, patient also had dark stools consistent with melena on rectal exam. Currently remains hemodynamics stable although mildly tachycardic with no drops in hemoglobin compared to baseline. As per ER discussion with GI, we'll monitor hemoglobins every 8 hours for now and start Protonix twice a day. We'll obtain official GI consul in a.m. In addition, patient may have possible PE as per the CT read. Anti-coagulation on hold given patient is not hypoxic and resting comfortably on room air. Problems (1) GI bleeding Status: Acute Response to Treatment: Stable Problem Specific Plan: Consult Specialist Problem Text: Patient presents with suspected upper GI bleed with coffee-ground emesis. Currently no further emesis noted while in the ER. Remains hemodynamically stable. CT shows no extravasation of contrast. Patient not on oral anticoagulants or NSAIDs as per medication review. - Protonix IV 40 mg twice a day - CBC every 8 hours for now - Follow up GI consult in a.m. - Nothing by mouth except medications - Continue IV fluids at 100 mL per hour normal saline - Zofran when necessary - Maintain active type and screen - Maintain large-bore IVs - Transfuse if he will be less than 7 or actively bleeding and hemodynamically unstable (2) Filling defect on imaging study Status: Acute Problem Text: CT abdomen and pelvis did catch the lower part of the lung. As per radiologist read, possible filling defect is seen in the right lower lobe segmental pulmonary arteries. Patient received contrast already today and therefore is not candidate for CTA. Currently not hypoxic and EKG shows no changes of massive PE. - VQ scan in a.m. to rule out PE - Hold off on anticoagulation for now as patient is not hypoxic and saturating well on room air (3) Atrial fibrillation with RVR Status: Acute Problem Text: Patient has proximal A. fib. EKG on admission shows sinus tachyca rdia. Currently not on anticoagulation and opting for rate control. - Continue with rate control for now with metoprolol - Hold off on anticoagulation due to suspected GI bleed, can be discussed as o utpatient if necessary (4) Seizures Status: Chronic Problem Text: No recent seizures as per review of electronic medical record. - Continue with home doses of Depakote and Keppra (5) Malnutrition Status: Chronic Problem Text: As evidenced by his temporal wasting and loss of visible muscle mass. - We'll obtain nutrition consult once patient is advanced to regular diet for optimization of nutrition (6) Obstructive uropathy Status: Chronic Response to Treatment: Stable Problem Text: Chronic issue. Patient has indwelling Degroot. Urine does appear hazy but no evidence of systemic infection noted. - Continue with Degroot care Plan / VTE VTE Prophylaxis Ordered?: No VTE Exclusion Pharmacological: Active Bleeding Plan / Urinary Catheter Urinary Catheter: Other Catheter: (chronic indwelling Degroot) Plan IVF: Initiate Diet: Make NPO (except medications) Activity: Continue Current Therapy: PT Diagnostics: Nuclear Med Study Anticipated Discharge: Usp Advanced Directives: MOLST Form is available, Do Not Resuscitate (DNR), Health Care Proxy (HCP) DAWIT MONIQUE MD Jun 24, 2019 01:54
[2019-06-24] MEDS ORDERED: DEPA1TAB3 PO (02:13)
[2019-06-24 03:50] VITALS: BP 106/71
[2019-06-24 05:39] LABS: HEMATOCRIT 32.8 % (42.0-52.0); HEMOGLOBIN 10.5 g/dl (13.5-17.5); MEAN CORPUSCULAR HEMOGLOBIN 29.7 pg (27.0-33.0); MEAN CORPUSCULAR VOLUME 92.9 fl (80.0-96.0); PLATELET COUNT, AUTOMATED 136 10^3/uL (150-450); RED BLOOD COUNT 3.53 10^6/uL (4.30-6.10); WHITE BLOOD COUNT 10.4 10^3/uL (4.0-10.0)
[2019-06-24 06:00] VITALS: BP 109/73
[2019-06-24 06:05] LABS: ALBUMIN 1.8 GM/DL (3.2-5.2); ALT/SGPT < 6 U/L (12-78); BILIRUBIN,TOTAL 0.4 MG/DL (0.2-1.0); BLOOD UREA NITROGEN 31 MG/DL (7-18); CALCIUM LEVEL 8.3 MG/DL (8.8-10.2); CARBON DIOXIDE LEVEL 30 MEQ/L (21-32); CHLORIDE LEVEL 107 MEQ/L (98-107); CREATININE FOR GFR 0.78 MG/DL (0.70-1.30); GLOMERULAR FILTRATION RATE > 60.0 (>35); GLUCOSE, FASTING 85 MG/DL (70-100); POTASSIUM SERUM 3.9 MEQ/L (3.5-5.1); SODIUM LEVEL 142 MEQ/L (136-145); TOTAL PROTEIN 5.9 GM/DL (6.4-8.2)
--- NOTE | 2019-06-24 06:28 | ECGEPIP ---
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
--- NOTE | 2019-06-24 08:20 | REP ---
Clinical: Abdominal pain. Technique: Supine views of the chest and abdomen/pelvis with cross-table lateral views of the abdomen. Findings: Frontal view of the chest demonstrates chronic appearing age-related interstitial changes without focal consolidation or effusion. No pneumothorax. Supine and cross-table lateral views of the abdomen and pelvis demonstrate nonspecific bowel gas pattern. Diverticulosis noted. No obvious organomegaly. No foreign body. Skeletal structures demonstrate age-related degenerative changes. Impression: No definite obstruction or perforation. Electronically Signed by Tuan Ruffin MD 06/24/2019 08:11 A
[2019-06-24] MEDS ORDERED: DIVALPROEX 500MG *ER* TAB PO SCH (09:00)
[2019-06-24] MEDS: PANTOPRAZOLE 40MG INJ (PROTONIX) (C9113) IV SCH ×2 (09:24→21:39)
[2019-06-24] MEDS: DIVALPROEX 500 MG TAB PO SCH ×2 (09:25→21:39)
[2019-06-24] MEDS: levETIRAcetam 250MG TABLET (KEPPRA) PO SCH ×2 (09:25→21:40)
[2019-06-24] MEDS: CitaloPRAM (CeleXA) 10 MG TABLET PO SCH (09:28)
[2019-06-24] MEDS: METOPROLOL TART 12.5 MG PER 1/2 TAB PO SCH ×2 (09:28→21:41)
[2019-06-24] MEDS ORDERED: ONDANSETRON 4MG/2ML VIAL (J2405) IV PRN (10:30)
--- NOTE | 2019-06-24 10:34 | IPNPDOC ---
Subjective Date Seen The patient was seen on 06/24/19. Subjective Chief Complaint/HPI Patient noted sleeping comfortably, Easily arousable however trying to push me away as he does not want me to move his blankets for examination. Denies any abdominal pain. No further coffee ground emesis after coming to the hospital. No diarrhea. Objective Physical Examination General Exam: Positive: Alert, Cooperative, No Acute Distress Eye Exam: Positive: PERRLA, Conjunctiva & lids normal, EOMI; Negative: Sclera icteric ENT Exam: Positive: Atraumatic; Negative: Mucous membr. moist/pink (appears clinically dry) Neck Exam: Positive: Supple; Negative: JVD, thyromegaly Chest Exam: Positive: Clear to auscultation, Normal air movement; Negative: Wheezing Heart Exam: Positive: Rate Normal, Irregular Rhythm; Negative: Gallops, Murmurs, Rubs Abdomen Exam: Positive: Normal bowel sounds, Soft; Negative: Tenderness, Hepatospenomegaly, Mass Extremity Exam: Negative: Clubbing, Cyanosis, Edema Skin Exam: Positive: Nl turgor and temperature Neuro Exam: Positive: Normal Speech, Strength at 5/5 X4 ext, Normal Tone, Sensation Intact (gait was not assessed) Psych Exam: Positive: Mental status NL, Mood NL, Oriented x 3 Assessment /Plan Assessment 83-year-old male skilled nursing patient with past medical history of seizure disorder, recent pneumonia, paroxysmal A. fib, GERD, cognitive impairment presents from the skilled nursing for1 episode of large volume coffee ground emesis. As per skilled nursing records and ER endorsement, patient had 1 episode of coffee-ground emesis today. Patient is unable to recall events due to his likely dementia. As per records, patient was also noted to be desaturating at that time. Patient was brought to the ER by ambulance and upon evaluation in the ER, patient noted to be tachycardic but no further episodes of vomiting was noted during his stay. Patient does not recall any of these events and currently states that he feels fine. Coffee ground emesis probably from gastritis. No further episode in hospital HH stable PPI, sucralfate. Hiatal hernia /GERD PPI Hypoxia in NH and on admission VQ scan highly positive CT angio chest ordered. Normocytic anemia of chronic disease hh stable Paroxysmal Aib with rvr continue metroprolol Dementia continue citalopram, Seizure disorder keppra, depakote PTSD citalopram Chronic back pain Chronic Urinary retention has mccauley in place H/o nondisplaced fracture of the right clavicle in April 2019 Plan/VTE VTE Prophylaxis Ordered?: Yes VS, I&O, 24H, Fishbone Vital Signs/I&O Vital Signs Date Time Temp Pulse Resp B/P (MAP) Pulse Ox O2 Delivery O2 Flow Rate FiO2 06/24/19 09:28 98 115/61 06/24/19 06:00 97.3 18 93 Nasal Cannula 2.0 I&O- Last 24 Hours up to 6 AM 06/24/19 06:00 Intake Total 1000 ml Output Total 250 ml Balance 750 ml Laboratory Data 24H LABS Laboratory Tests 2 06/23/19 22:56: Urine Color PALLAVI, Urine Appearance HAZY, Urine pH 5.0, Urine Specific [place] 1.024, Urine Protein 1+H, Urine Glucose (UA) NEGATIVE, Urine Ketones 1+H, Urine Blood 2+H, Urine Nitrite NEGATIVE, Urine Bilirubin NEGATIVE, Urine Urobilinogen 4.0H, Urine Leukocyte Esterase TRACEH, Urine WBC (Auto) 26H, Urine RBC (Auto) 81H, Urine Hyaline Casts (Auto) 0, Urine Bacteria (Auto) NEGATIVE, Urine Squamous Epithelial Cells 0, Urine Calcium Oxalate Cryst (Auto) SMALL, Urine Mucus (Auto) SMALL, Urine Sperm (Auto) 06/23/19 23:25: Immature Granulocyte % (Auto) 0.3, Neutrophils (%) (Auto) 85.7H, Lymphocytes (%) (Auto) 7.8L, Monocytes (%) (Auto) 6.1H, Eosinophils (%) (Auto) 0.0, Basophils (%) (Auto) 0.1, Neutrophils # (Auto) 7.5, Lymphocytes # (Auto) 0.7L, Monocytes # (Auto) 0.5, Eosinophils # (Auto) 0.0, Basophils # (Auto) 0.0, Nucleated Red Blood Cells % (auto) 0.0, Prothrombin Time 15.7H, Prothromb Time International Ratio 1.28, Anion Gap 7L, Glomerular Filtration Rate > 60.0, Calcium Level 8.8, Total Bilirubin 0.4, Direct Bilirubin 0.2, Aspartate Amino Transf (AST/SGOT) 16, Alanine Aminotransferase (ALT/SGPT) < 6L, Alkaline Phosphatase 55, Total Protein 6.4, Albumin 2.0L, Albumin/Globulin Ratio 0.45L, Lipase 64L 06/24/19 05:29: Nucleated Red Blood Cells % (auto) 0.0, Anion Gap 5L, Glomerular Filtration Rate > 60.0, Calcium Level 8.3L, Total Bilirubin 0.4, Aspartate Amino Transf (AST/SGOT) 17, Alanine Aminotransferase (ALT/SGPT) < 6L, Alkaline Phosphatase 48, Total Protein 5.9L, Albumin 1.8L, Albumin/Globulin Ratio 0.44L CBC/BMP Laboratory Tests 06/23/19 23:25 06/24/19 05:29 Microbiology Microbiology 06/23/19 Urine Culture, Received Pending NANY WESTBROOK MD Jun 24, 2019 10:34
[2019-06-24] MEDS: SUCRALFATE SUSP 1GM/10ML UD PO SCH ×3 (12:00→21:39)
--- NOTE | 2019-06-24 12:21 | REP ---
V/Q SCAN: Following the administration of 5.4 millicuries technetium 99m tagged MAA and the inhalation of 1 millicurie technetium 99m DTPA aerosol, multiple images of the lungs are obtained in various projections. There is a large segmental perfusion defect in the posterobasilar right lower lobe. Ventilation images show a lesser degree of a defect in that region. There is also an apparent large perfusion defect in the region of the right middle lobe with a similar ventilation defect. There is a large perfusion defect in the left lower lobe with a smaller ventilation defect in that region. The findings are suspicious for pulmonary embolism, with relatively high probability. Recommend CT angiogram of the chest with IV contrast for further evaluation. Electronically Signed by Byron Valdez MD 06/24/2019 02:47 P
[2019-06-24 14:00] VITALS: BP 94/73
[2019-06-24] MEDS: ENOXAPARIN 40 MG/0.4 ML SYRINGE (J1650) SC SCH (14:06)
[2019-06-24 14:36] LABS: HEMATOCRIT 34.2 % (42.0-52.0); HEMOGLOBIN 10.8 g/dl (13.5-17.5)
[2019-06-24 21:06] VITALS: BP 100/60
[2019-06-25 05:23] LABS: BASO # 0.1 10^3/uL (0.0-0.2); BASO % 0.9 % (0.0-1.0); EOS # 0.1 10^3/uL (0.0-0.5); EOS % 1.9 % (0.0-3.0); HEMATOCRIT 30.8 % (42.0-52.0); HEMOGLOBIN 9.7 g/dl (13.5-17.5); LYMPH # 1.8 10^3/uL (1.5-5.0); LYMPH % 30.9 % (24.0-44.0); MEAN CORPUSCULAR HEMOGLOBIN 29.7 pg (27.0-33.0); MEAN CORPUSCULAR HGB CONC 31.5 g/dl (32.0-36.5); MEAN CORPUSCULAR VOLUME 94.2 fl (80.0-96.0); MONO # 0.5 10^3/uL (0.0-0.8); MONO % 7.8 % (0.0-5.0); NEUTROPHILS # 3.4 10^3/uL (1.5-8.5); NEUTROPHILS % 58.2 % (36.0-66.0); PLATELET COUNT, AUTOMATED 143 10^3/uL (150-450); RED BLOOD COUNT 3.27 10^6/uL (4.30-6.10); WHITE BLOOD COUNT 5.8 10^3/uL (4.0-10.0)
[2019-06-25 05:40] LABS: BLOOD UREA NITROGEN 26 MG/DL (7-18); CALCIUM LEVEL 8.5 MG/DL (8.8-10.2); CARBON DIOXIDE LEVEL 33 MEQ/L (21-32); CHLORIDE LEVEL 108 MEQ/L (98-107); CREATININE FOR GFR 0.74 MG/DL (0.70-1.30); GLOMERULAR FILTRATION RATE > 60.0 (>35); GLUCOSE, FASTING 76 MG/DL (70-100); POTASSIUM SERUM 4.1 MEQ/L (3.5-5.1); SODIUM LEVEL 144 MEQ/L (136-145)
[2019-06-25 05:52] VITALS: BP 103/59
[2019-06-25] MEDS: SUCRALFATE SUSP 1GM/10ML UD PO SCH ×4 (07:30→20:29)
[2019-06-25] MEDS ORDERED: ISOVUE-370 76% 100ML VIAL (Q9967) As Ordered ONE (08:32)
[2019-06-25] MEDS: METOPROLOL TART 12.5 MG PER 1/2 TAB PO SCH ×2 (09:00→20:31)
--- NOTE | 2019-06-25 09:29 | REP ---
Clinical: Shortness of breath. High probability ventilation/perfusion scan. Technique: Axial contrast enhanced images from the thoracic inlet to the upper abdomen using 75 ml Isovue 370 intravenous contrast material with multiplanar re-formations based on pulmonary embolus protocol. Findings: Evaluation is somewhat limited by respiratory motion artifact, and there is suggestion for a pulmonary embolus in the second/third order pulmonary arterial branch vessel to the right lower lobe best identified on soft tissue images 108 - 115. Correlation is recommended. No further pulmonary emboli are identified. Small to moderate areas of bibasilar atelectasis and small pleural reactions noted bilaterally. Very subtle scattered air space disease involving the right upper lobe as well as the apical segments of the lower lobes may represent an early multifocal pneumonia pattern. Underlying chronic age-related interstitial changes and moderate emphysematous disease noted. No pneumothorax. No significant adenopathy. Mediastinum demonstrates atherosclerotic changes to the thoracic aorta and coronary arteries without aortic aneurysm or dissection. No cardiomegaly or pericardial effusion. Moderate hiatal hernia identified. Impression: 1. Limited examination due to motion artifact, but subtle pulmonary embolus involving second-order/third order branching right lower lobe pulmonary artery is suspected. 2. Bibasilar atelectasis and findings to suggest very subtle early airspace disease. 3. Further chronic nonspecific findings as above including moderate hiatal hernia and atherosclerotic disease. Electronically Signed by Tuan Ruffin MD 06/25/2019 09:20 A
[2019-06-25] MEDS: PANTOPRAZOLE 40MG INJ (PROTONIX) (C9113) IV SCH ×2 (09:31→20:29)
[2019-06-25] MEDS: DIVALPROEX 500 MG TAB PO SCH ×2 (09:31→20:31)
[2019-06-25] MEDS: levETIRAcetam 250MG TABLET (KEPPRA) PO SCH ×2 (09:32→20:29)
[2019-06-25] MEDS: CitaloPRAM (CeleXA) 10 MG TABLET PO SCH (09:34)
[2019-06-25] MEDS: ENOXAPARIN 40 MG/0.4 ML SYRINGE (J1650) SC SCH (09:35)
[2019-06-25] MEDS: D5W/0.45% SODIUM CHLORIDE 1,000 ML IV SCH (09:56)
[2019-06-25] MEDS ORDERED: SENOKOT S TAB PO PRN (10:00)
--- NOTE | 2019-06-25 11:13 | REP ---
Clinical: Bilateral lower extremity pain and swelling . Technique: Valdez scale and color Doppler evaluation of the bilateral lower extremities using linear high frequency transducer. Findings: Right lower extremity demonstrates small nonocclusive thrombus in the distal femoral vein. The remainder of the right lower extremity deep venous structures appear patent. Left lower extremity deep venous structures are patent and without evidence for thrombosis. Impression: 1. Small focal nonocclusive thrombus in the right distal femoral vein. Electronically Signed by Tuan Ruffin MD 06/25/2019 11:05 A
[2019-06-25] MEDS ORDERED: HEPARIN SOD (PORCINE) 5000 UNITS/ML VIAL (J1644 PER 1000UNITS) IV PRN (12:00)
[2019-06-25 12:17] LABS: HEMOGLOBIN 10.5 g/dl (13.5-17.5)
[2019-06-25] MEDS ORDERED: HEPARIN DRIP 25,000 UNITS in IV 1 EA IV SCH (13:00)
[2019-06-25 14:00] VITALS: BP 132/35
--- NOTE | 2019-06-25 16:30 | IPNPDOC ---
Text Note Date of Service The patient was seen on 06/25/19. NOTE Subjective: Patient is an 83-year-old male with a PMHx of Seizure disorder, Paroxysmal A. fib (not on anticoagulation), Cognitive impairment GERD, who pr esented from [facility] to the ER with complaints of coffee ground emesis. Patient was noted to have 1 large movement at the fpc and again in the ER. In the ER, patient had imaging completed of the abdomen that revealed suspected PE. Patient was admitted to hospitalist service for further evaluation and treatment. Patient was seen and examined at the bedside. Currently reports that they have not expressing nausea, vomiting, chest pain, shortness breath or palpitation. Patient denies any abdominal pain, or diarrhea. Patient has not had a bowel movement since admission. Objective: Vitals (See below) General: Lying in bed, appears comfortable, Awake / Alert HEENT: NC, AT CVS: RRR, +S1S2 Lungs: Fair air entry b/l, -w/r/r Abdomen: Soft, ND, NT Extremities: - Edema, - Calf tenderness Assessment and plan: Coffee ground emesis - possibly 2/2 gastritis - Resistant to the emergency room with complaints of coffee-ground emesis - Remains hemodynamically stable - Hg has remained stable - Has not required transfusions - c/w Protonix + Carafate - Consult to gastroenterology; plan for EGD tomorrow Pulmonary Embolism / DVT - Upon arrival, patient was hypoxic; however, currently saturating at 96% on room air - CTA 06/24: 1. Limited examination due to motion artifact, but subtle pulmonary embolus involving second-order/third order branching right lower lobe pulmonary artery is suspected. 2. Bibasilar atelectasis and findings to suggest very subtle early airspace disease. 3. Further chronic nonspecific findings as above including m oderate hiatal hernia and atherosclerotic disease. - Duplex US 06/24: 1. Small focal nonocclusive thrombus in the right distal femoral vein. - Discussed risks and benefits with patient and daughter about anticoagulation; at this time will hold anticoagulation and proceed with IVC filter - Consulted interventional radiology; plan for IVC filter tomorrow Paroxysmal A. fib with RVR - c/w rate control with metroprolol Dementia / Mood disorder - c/w Citalopram Seizure disorder - c/w Keppra PTSD - c/w Citalopram Chronic back pain / Hx of nondisplaced fracture of the right clavicle (April 2019) Chronic Urinary retention - Has Degroot catheter in place GERD / Hiatal Hernia - c/w Protonix and Carafate DVT prophylaxis - c/w TEDs/Sequentials VS,Fishbone, I+O VS, Fishbone, I+O Laboratory Tests 06/24/19 14:22 06/25/19 04:48 06/25/19 12:04 Vital Signs Date Time Temp Pulse Resp B/P (MAP) Pulse Ox O2 Delivery O2 Flow Rate FiO2 06/25/19 09:00 67 100/46 06/25/19 05:52 97.3 18 97 Room Air 06/24/19 14:00 2.0 I&O- Last 24 Hours up to 6 AM 06/25/19 06:00 Intake Total 405 ml Output Total 325 ml Balance 80 ml CARMINE HECK MD Jun 25, 2019 14:29
[2019-06-25 18:23] LABS: HEMATOCRIT 31.3 % (42.0-52.0)
[2019-06-25 22:24] VITALS: BP 101/60
[2019-06-26] VITALS (10 sets, daily range): BP systolic 101–131; BP diastolic 53–72
[2019-06-26 00:35] LABS: HEMATOCRIT 29.7 % (42.0-52.0); HEMOGLOBIN 9.6 g/dl (13.5-17.5)
[2019-06-26] MEDS: D5W/0.45% SODIUM CHLORIDE 1,000 ML IV SCH ×2 (02:40→20:30)
[2019-06-26 05:26] LABS: BASO % 0.6 % (0.0-1.0); EOS # 0.2 10^3/uL (0.0-0.5); EOS % 4.2 % (0.0-3.0); HEMATOCRIT 30.4 % (42.0-52.0); HEMOGLOBIN 9.8 g/dl (13.5-17.5); LYMPH # 1.2 10^3/uL (1.5-5.0); LYMPH % 25.6 % (24.0-44.0); MEAN CORPUSCULAR HEMOGLOBIN 30.2 pg (27.0-33.0); MEAN CORPUSCULAR HGB CONC 32.2 g/dl (32.0-36.5); MEAN CORPUSCULAR VOLUME 93.5 fl (80.0-96.0); MONO # 0.3 10^3/uL (0.0-0.8); MONO % 7.2 % (0.0-5.0); NEUTROPHILS # 2.9 10^3/uL (1.5-8.5); PLATELET COUNT, AUTOMATED 145 10^3/uL (150-450); RED BLOOD COUNT 3.25 10^6/uL (4.30-6.10); WHITE BLOOD COUNT 4.7 10^3/uL (4.0-10.0)
[2019-06-26 05:55] LABS: BLOOD UREA NITROGEN 18 MG/DL (7-18); CARBON DIOXIDE LEVEL 34 MEQ/L (21-32); CHLORIDE LEVEL 107 MEQ/L (98-107); GLOMERULAR FILTRATION RATE > 60.0 (>35); GLUCOSE, FASTING 88 MG/DL (70-100); POTASSIUM SERUM 3.4 MEQ/L (3.5-5.1); SODIUM LEVEL 144 MEQ/L (136-145)
[2019-06-26] MEDS ORDERED: KCL 10MEQ/100ML SWI (KRUN) 10 MEQ in IV 1 EA IV ONE (07:15)
[2019-06-26] MEDS: SUCRALFATE SUSP 1GM/10ML UD PO SCH ×4 (08:30→20:30)
[2019-06-26] MEDS: DIVALPROEX 500 MG TAB PO SCH ×2 (08:30→20:30)
[2019-06-26] MEDS: PANTOPRAZOLE 40MG INJ (PROTONIX) (C9113) IV SCH ×2 (08:32→20:31)
[2019-06-26] MEDS: CitaloPRAM (CeleXA) 10 MG TABLET PO SCH (08:32)
[2019-06-26] MEDS: levETIRAcetam 250MG TABLET (KEPPRA) PO SCH ×2 (08:32→20:30)
[2019-06-26] MEDS: METOPROLOL TART 12.5 MG PER 1/2 TAB PO SCH ×2 (09:00→20:31)
--- NOTE | 2019-06-26 09:14 | IPNPDOC ---
Text Note Date of Service The patient was seen on 06/26/19. NOTE Subjective: Patient is an 83-year-old male with a PMHx of Seizure disorder, Paroxysmal A. fib (not on anticoagulation), Cognitive impairment GERD, who pr esented from [facility] to the ER with complaints of coffee ground emesis. Patient was noted to have 1 large movement at the senior care and again in the ER. In the ER, patient had imaging completed of the abdomen that revealed suspected PE. Patient was admitted to hospitalist service for further evaluation and treatment. Patient was seen and examined at the bedside. Patient reports that he has had an uneventful evening. Denies nausea, vomiting, chest pain, shortness of breath, palpitations, abdominal discomfort or any diarrhea. Degroot catheter in place. Objective: Vitals (See below) General: Lying in bed, resting, Awake / Alert HEENT: NC, AT CVS: RRR, +S1S2 Lungs: Fair air entry b/l, no appreciable rhonchi / crackles / wheezing Abdomen: Abdomen remains soft, without any distention or tenderness Extremities: Lower extremities are free of any edema, - Calf tenderness Assessment and plan: Coffee ground emesis - possibly 2/2 upper GI etiology - possibly 2/2 gastritis / esophagitis / duodenitis - Presented to the ER with complaints of coffee-ground emesis - Remains hemodynamically stable - Hg has remained stable; Has not required transfusions - c/w Protonix + Carafate - NPO currently - Gastroenterology on consultation; plan for EGD today Pulmonary Embolism / DVT - Upon arrival, patient was hypoxic; however, currently saturating at 96% on room air - CTA 06/24: 1. Limited examination due to motion artifact, but subtle pulmonary embolus involving second-order/third order branching right lower lobe pulmonary artery is suspected. 2. Bibasilar atelectasis and findings to suggest very subtle early airspace disease. 3. Further chronic nonspecific findings as above including moderate hiatal hernia and atherosclerotic disease. - Duplex US 06/24: 1. Small focal nonocclusive thrombus in the right distal femoral vein. - Discussed risks and benefits with patient and daughter about anticoagulation; at this time will hold anticoagulation and proceed with IVC filter - Interventional radiology; Will have IVC filter placed today Thrombocytopenia - Currently remains stable - No further episodes of bleeding Hypokalemia - Will supplement Paroxysmal A. fib with RVR - c/w rate control with metoprolol - Based on records; appears anticoagulation was discontinued because of frequent falls Dementia / Mood disorder - c/w Citalopram Seizure disorder - c/w Keppra PTSD - c/w Citalopram Chronic back pain / Hx of nondisplaced fracture of the right clavicle (April 2019) Chronic Urinary retention - Has Degroot catheter in place GERD / Hiatal Hernia - c/w Protonix and Carafate DVT prophylaxis - c/w TEDs/Sequentials Disposition: - Anticipate return to [facility] tomorrow VS,Antoinette, I+O VS, Antoinette, I+O Laboratory Tests 06/25/19 12:04 06/25/19 18:05 06/26/19 00:00 06/26/19 05:11 Vital Signs Date Time Temp Pulse Resp B/P (MAP) Pulse Ox O2 Delivery O2 Flow Rate FiO2 06/26/19 05:27 97.4 86 98 06/26/19 05:26 15 101/53 (69) Room Air 06/26/19 02:13 I&O- Last 24 Hours up to 6 AM 06/26/19 06:00 Intake Total 190 ml Output Total 450 ml Balance -260 ml CARMINE HECK MD Jun 26, 2019 09:14
[2019-06-26] MEDS ORDERED: propofoL 200 MG/20 ML VIAL As Ordered ONE (09:46)
[2019-06-26] MEDS ORDERED: LIDOCAINE 2% INJ 100 MG/5 ML SYRINGE As Ordered ONE (09:46)
--- NOTE | 2019-06-26 12:05 | IRMSE ---
[facility] IR Moderate Sedation Eval. Date and Time Date: Jun 26, 2019 Time: 12:05 ASA Classification ASA Classification: III-Severe systemic dis. Mallampati Score: II NPO: Yes Obstructive Sleep Apnea: No Interval Plan: moderate sedation CECILY CARDENAS MD Jun 26, 2019 12:05
[2019-06-26] MEDS ORDERED: ISOVUE-300 61% 50ML VIAL (Q9967) As Ordered ONE (12:08)
[2019-06-26] MEDS ORDERED: LIDOCAINE 1% MDV 20ML VIAL As Ordered ONE (12:08)
[2019-06-26] MEDS ORDERED: diphenhydrAMINE INJ 50MG/ML VIAL (J1200) As Ordered ONE (12:14)
[2019-06-26] MEDS ORDERED: fentaNYL 100 MCG/2 ML INJECTION (J3010) As Ordered ONE (12:14)
[2019-06-26] MEDS ORDERED: MIDAZOLAM INJ 2 MG/2 ML VIAL (J2250) As Ordered ONE (12:15)
--- NOTE | 2019-06-26 13:19 | REP ---
IR IVC filter placement. IR Venogram. IR moderate sedation. Ultrasound of the right groin. Clinical indication : Deep vein thrombosis and pulmonary emboli. Contraindication to anticoagulation due to upper GI bleed. Physician: Dr. Abbasi. Procedure: The patient was advised of the benefits, risks and alternatives of the procedure and informed consent was obtained. The time-out was performed with verification of the patient's name, MRN, site of procedure and type of procedure to be performed. The patient was positioned in the supine position on the angiographic table. The site was prepped and draped in the usual sterile fashion. Moderate sedation was performed by the physician including the presence of an independent trained observer that assisted in monitoring the patient's level of consciousness and physiologic status. Following administration of Fentanyl and Versed , the physician spent 45 minutes of continuous face to face time with the patient. Preliminary ultrasound of the right groin was performed and demonstrates a patent right common femoral vein which is easily compressible. The vein was accessed using a micropuncture kit, under ultrasound guidance. An 035 wire was placed into the peripheral inferior vena cava. An inferior vena cava venogram was then performed demonstrating a normal caliber inferior vena cava without filling defects and the renal vein inflow at the L2 level. No caval anomalies were identified. The wire was then passed into the inferior vena cava and the filter sheath advanced over the wire. A filter was then advanced through the sheath and positioned within the infrarenal inferior vena cava. The filter was then deployed in the usual fashion. Positioning was confirmed fluoroscopically. The sheath was then removed and hemostasis obtained with manual compression. The patient tolerated the procedure well and was returned to PRU in stable condition. EBL: Less than 5 ml. Complications: None. Conclusion: 1. Normal inferior vena cava venogram. 2. Successful deployment of a cook select filter in the infrarenal inferior vena cava. 3. Patient to return for filter retrieval when no longer needed. Follow up in IR clinic in 6 months. Thank you this referral. Electronically Signed by Roxanne Abbasi MD 06/26/2019 01:18 P
--- NOTE | 2019-06-26 13:20 | POST-OPPD ---
Postoperative Procedure Note Date Of Procedure: Jun 26, 2019 Time Of Procedure: 13:18 PREOPERATIVE DIAGNOSIS: DVT/PE CI to AC POSTOPERATIVE DIAGNOSIS: same FINDINGS: patent IVC PROCEDURE: IVC filter placed. see full report under imaging tab associated with procedural images. SURGEON: josé antonio ANESTHESIA: mod sed ESTIMATED BLOOD LOSS: < 5 ml COMPLICATIONS: none POSTOPERATIVE CONDITION: stable CECILY CARDENAS MD Jun 26, 2019 13:20
[2019-06-26] MEDS ORDERED: LIDOCAINE 2% INJ 100 MG/5 ML SDV (FOR ANES.) As Ordered ONE (15:19)
--- NOTE | 2019-06-26 16:14 | ROOR ---
Patient Name: Bigg Mccormick Procedure Date: 06/26/2019 3:01 PM Date of : 1935 Age: 83 Gender: Male Note Status: Finalized Procedure: Upper GI endoscopy Indications: Coffee-ground emesis Providers: Abram MENDOZA MD Referring MD: 2. Inpatient 2. Inpatient Requesting Provider: Medicines: Monitored Anesthesia Care Complications: No immediate complications. Procedure: Pre-Anesthesia Assessment: - The heart rate, respiratory rate, oxygen saturations, blood pressure, adequacy of pulmonary ventilation, and response to care were monitored throughout the procedure. The Endoscope was introduced through the mouth, and advanced to the second part of duodenum. The upper GI endoscopy was accomplished without difficulty. The patient tolerated the procedure well. Findings: Moderately severe esophagitis was found in the lower third of the esophagus. A large hiatal hernia was present. The exam of the stomach was otherwise normal. The examined duodenum was normal. Impression: - Moderately severe reflux esophagitis. - Large hiatal hernia. - Normal examined duodenum. - No specimens collected. Recommendation: - Use Prilosec (omeprazole) 40 mg PO daily indefinitely. - Use a proton pump inhibitor PO daily indefinitely. - Use sucralfate suspension 1 gram PO QID for 1 week. - No active bleeding from esophagitis. OK from my standpoint to anticoagulate if deemed necessary from medical standpoint. Monitor H&H. - Return to primary care physician. Abram Mendoza MD Abram MENDOZA MD 06/26/2019 4:14:07 PM Electronically signed by Abram MENDOZA MD Number of Addenda: 0 Note Initiated On: 06/26/2019 3:01 PM Estimated Blood Loss: Estimated blood loss: none.
[2019-06-26] MEDS ORDERED: LR 1,000 ML IV SCH (16:45)
[2019-06-26] MEDS ORDERED: ONDANSETRON 4MG/2ML VIAL (J2405) IV PRN (16:45)
[2019-06-27 02:00] VITALS: BP 113/66
[2019-06-27 06:00] VITALS: BP 104/62
[2019-06-27 06:51] LABS: BASO % 0.3 % (0.0-1.0); EOS # 0.2 10^3/uL (0.0-0.5); EOS % 2.1 % (0.0-3.0); HEMATOCRIT 31.3 % (42.0-52.0); LYMPH # 1.3 10^3/uL (1.5-5.0); LYMPH % 18.6 % (24.0-44.0); MEAN CORPUSCULAR HEMOGLOBIN 29.6 pg (27.0-33.0); MEAN CORPUSCULAR HGB CONC 31.9 g/dl (32.0-36.5); MEAN CORPUSCULAR VOLUME 92.6 fl (80.0-96.0); MONO # 0.5 10^3/uL (0.0-0.8); MONO % 7.2 % (0.0-5.0); NEUTROPHILS # 5.1 10^3/uL (1.5-8.5); NEUTROPHILS % 71.4 % (36.0-66.0); PLATELET COUNT, AUTOMATED 139 10^3/uL (150-450); RED BLOOD COUNT 3.38 10^6/uL (4.30-6.10); WHITE BLOOD COUNT 7.2 10^3/uL (4.0-10.0)
[2019-06-27 07:17] LABS: BLOOD UREA NITROGEN 11 MG/DL (7-18); CALCIUM LEVEL 7.8 MG/DL (8.8-10.2); CARBON DIOXIDE LEVEL 31 MEQ/L (21-32); CHLORIDE LEVEL 105 MEQ/L (98-107); CREATININE FOR GFR 0.62 MG/DL (0.70-1.30); GLOMERULAR FILTRATION RATE > 60.0 (>35); GLUCOSE, FASTING 84 MG/DL (70-100); POTASSIUM SERUM 3.4 MEQ/L (3.5-5.1); SODIUM LEVEL 140 MEQ/L (136-145)
[2019-06-27] MEDS ORDERED: POTASSIUM CHLORIDE 10 MEQ SR TABLET PO ONE (07:30)
[2019-06-27] MEDS: CitaloPRAM (CeleXA) 10 MG TABLET PO SCH (08:30)
[2019-06-27] MEDS: DIVALPROEX 500 MG TAB PO SCH (08:30)
[2019-06-27] MEDS: SUCRALFATE SUSP 1GM/10ML UD PO SCH ×2 (08:31→12:53)
[2019-06-27] MEDS: levETIRAcetam 250MG TABLET (KEPPRA) PO SCH (08:31)
[2019-06-27 08:48] VITALS: BP 100/58
[2019-06-27] MEDS: METOPROLOL TART 12.5 MG PER 1/2 TAB PO SCH (08:48)
[2019-06-27] MEDS: PANTOPRAZOLE 40MG INJ (PROTONIX) (C9113) IV SCH (08:49)
[2019-06-27] MEDS ORDERED: OMEP40CA97 PO (09:03)
[2019-06-27] MEDS ORDERED: SUCR1ORA PO (09:03)
--- NOTE | 2019-06-27 11:14 | DS.PDOC ---
Discharge Summary General Date of Admission Jun 24, 2019 at 02:21 Date of Discharge 06/27/2019 Discharge Summary PROCEDURES PERFORMED DURING STAY: EGD (06/26/2019) with Dr. Mendoza IVC filter (06/26/2019) with Dr. Abbasi ADMITTING DIAGNOSES / DISCHARGE DIAGNOSES: s/p Coffee ground emesis - possibly 2/2 upper GI etiology - s/p EGD (06/26/2019) Pulmonary Embolism / DVT - s/p IVC filter (06/26/2019) Thrombocytopenia - possibly 2/2 recent bleeding, possibly 2/2 medications (Protonix) Hypokalemia Paroxysmal A. fib with RVR Dementia / Mood disorder Seizure disorder PTSD Chronic back pain / Hx of nondisplaced fracture of the right clavicle (April 2019) Chronic Urinary retention GERD / Hiatal Hernia DVT prophylaxis COMPLICATIONS/CHIEF COMPLAINT: Vomiting of coffee ground material HISTORY OF PRESENT ILLNESS: Patient is an 83-year-old male with a PMHx of Seizure disorder, Paroxysmal A. fib (not on anticoagulation), Cognitive impairment GERD, who presented from [facility] to the ER with complaints of coffee ground emesis. Patient was noted to have 1 large movement at the care home and again in the ER. In the ER, patient had imaging completed of the abdomen that revealed suspected PE. Patient was admitted to hospitalist service for further evaluation and treatment. HOSPITAL COURSE: s/p Coffee ground emesis - possibly 2/2 upper GI etiology - possibly 2/2 gastritis / esophagitis / duodenitis - Presented to the ER with complaints of coffee-ground emesis / Has not experienced this since admission - Remains hemodynamically stable - Hg has remained stable; Has not required transfusions - c/w Carafate; Will DC Protonix; Will start Omeprazole - s/p EGD (06/26/2019): Moderately severe reflux esophagitis, large hiatal hernia, normal examined duodenum, no specimens collected - Gastroenterology on consultation; appreciate their input Pulmonary Embolism / DVT - Upon arrival, patient was hypoxic; however, currently saturating at 96% on room air - CTA 06/24: 1. Limited examination due to motion artifact, but subtle pulmonary embolus involving second-order/third order branching right lower lobe pulmonary artery is suspected. 2. Bibasilar atelectasis and findings to suggest very subtle early airspace disease. 3. Further chronic nonspecific findings as above including moderate hiatal hernia and atherosclerotic disease. - Duplex US 06/24: 1. Small focal nonocclusive thrombus in the right distal femoral vein. - Discussed risks and benefits with patient and daughter about anticoagulation; at this time will hold anticoagulation and proceed with IVC filter - s/p IVC filter (06/26/2019) - Interventional radiology on consultation; appreciate their input Thrombocytopenia - possibly 2/2 recent bleeding, possibly 2/2 medications - Currently remains stable - No further episodes of bleeding - Will DC Protonix; Will start Omeprazole Hypokalemia - Will supplement again Paroxysmal A. fib with RVR - c/w rate control with metoprolol - Based on records; appears anticoagulation was discontinued because of frequent falls Dementia / Mood disorder - c/w Citalopram Seizure disorder - c/w Keppra PTSD - c/w Citalopram Chronic back pain / Hx of nondisplaced fracture of the right clavicle (April 2019) Chronic Urinary retention - Has Degroot catheter in place GERD / Hiatal Hernia - c/w Carafate - Will DC Protonix IV; c/w Omeprazole DVT prophylaxis - c/w TEDs/Sequentials DISCHARGE MEDICATIONS: Please see below. ALLERGIES: Please see below. PHYSICAL EXAMINATION ON DISCHARGE: Vitals (See below) General: Lying in bed, resting, Awake / Alert HEENT: NC, AT CVS: +S1S2 Lungs: There does not appear to be any wheezing / rhonchi / rales, air entry is fair b/l Abdomen: Abdomen again remains soft, no distention or tenderness Extremities: No appreciable edema at lower extremities bilaterally, - Calf tenderness LABORATORY DATA: Please see below. ACTIVITY: [As tolerated]. DISCHARGE PLAN: Follow up with Dr. Shahbaz Hope, Dr. Mendoza and Dr. Abbasi within 7 days Remain compliant with treatment plan and medications Return to the ER if you experience any problems DISPOSITION: [facility] DISCHARGE CONDITION: [Stable]. TIME SPENT ON DISCHARGE: 35 minutes Vital Signs/I&Os Vital Signs Date Time Temp Pulse Resp B/P (MAP) Pulse Ox O2 Delivery O2 Flow Rate FiO2 06/27/19 08:48 76 100/58 06/27/19 06:00 97.6 16 95 Room Air 06/26/19 20:20 2.0 06/26/19 17:50 28 I&O- Last 24 Hours up to 6 AM 06/27/19 06:00 Intake Total 1430 ml Output Total 825 ml Balance 605 ml Laboratory Data Labs 24H Laboratory Tests 2 06/27/19 06:41: Immature Granulocyte % (Auto) 0.4, Neutrophils (%) (Auto) 71.4H, Lymphocytes (%) (Auto) 18.6L, Monocytes (%) (Auto) 7.2H, Eosinophils (%) (Auto) 2.1, Basophils (%) (Auto) 0.3, Neutrophils # (Auto) 5.1, Lymphocytes # (Auto) 1.3L, Monocytes # (Auto) 0.5, Eosinophils # (Auto) 0.2, Basophils # (Auto) 0.0, Nucleated Red Blood Cells % (auto) 0.0, Anion Gap 4L, Glomerular Filtration Rate > 60.0, Calcium Level 7.8L CBC/BMP Laboratory Tests 06/27/19 06:41 Microbiology Microbiology 06/23/19 Urine Culture - Final, Complete Discharge Medications Scheduled Citalopram Hydrobromide (Celexa) 10 Mg Tablet, 10 MG PO DAILY, (Reported) Divalproex Sodium (Depakote) 500 Mg Tablet.dr, 500 MG PO BID, (Reported) Lactose-Reduced Food (Ensure Enlive) 237 Ml Liquid, 237 ML PO TID, (Reported) Levetiracetam (Keppra) 500 Mg Tablet, 1,000 MG PO BID, (Reported) Metformin HCl (Metformin ER Osmotic) 500 Mg Tab.er.24, 500 MG PO DAILY, (Reported) Metoprolol Tartrate (Metoprolol Tartrate) 25 Mg Tablet, 12.5 MG PO BID, (Reported) Multivitamins (Thera M Plus Tablet) 1 Each Tablet, 1 TAB PO DAILY, (Reported) Omeprazole (Omeprazole) 40 Mg Capsule.dr, 1 CAP PO DAILY Sucralfate (Sucralfate) 1 Gm/10 Ml Oral.susp, 1 GM PO ACHS Scheduled PRN Acetaminophen (Acetaminophen) 325 Mg Tablet, 650 MG PO Q4H PRN for PAIN / FEVER, (Reported) Bisacodyl (Dulcolax) 10 Mg Supp.rect, 10 MG AR DAILY PRN for CONSTIPATION, (Reported) Milk Of Magnesia (Milk of Magnesia) 2,400 Mg/10 Ml Oral.susp, 10 ML PO DAILY PRN for CONSTIPATION, (Reported) Ondansetron HCl (Zofran) 4 Mg Tablet, 4 MG PO Q6H PRN for NAUSEA OR VOMITING, (Reported) Sodium Phosphate,[place]-Dibasic (Enema) 133 Ml Enema, 1 BRITTANY AR DAILY PRN for CONSTIPATION, (Reported) Allergies Coded Allergies: Influenza Virus Vaccines (Verified Allergy, Unknown, 06/23/19) CARMINE HECK MD Jun 27, 2019 11:13
[2019-06-27] MEDS ORDERED: FLEET ENEMA PR ONE (13:00)
== END 2019-06-27 13:10 | DRG 356 ==
LOC: EDBD 22:04 → M ED 22:04 → M ED INP 06-24 02:21 → ENRESERV 06-24 02:58 → M MS5PR 06-24 03:20
PROVIDERS: ADMIT Internal Medicine; ATTEND Internal Medicine
PROC: 0DJ08ZZ Inspection of Upper Intestinal Tract, Via Natural or Artificial Opening Endoscopic (ICD-10-PCS; 2019-06-26)
PROC: 06H03DZ Insertion of Intraluminal Device into Inferior Vena Cava, Percutaneous Approach (ICD-10-PCS; principal; 2019-06-26 12:30)
DX: K20.9 Esophagitis, unspecified (principal); I26.99 Other pulmonary embolism without acute cor pulmonale; K92.2 Gastrointestinal hemorrhage, unspecified; E46 Unspecified protein-calorie malnutrition; I82.411 Acute embolism and thrombosis of right femoral vein; K29.70 Gastritis, unspecified, without bleeding; K29.80 Duodenitis without bleeding; G40.909 Epilepsy, unspecified, not intractable, without status epilepticus; I48.0 Paroxysmal atrial fibrillation; K21.9 Gastro-esophageal reflux disease without esophagitis; F03.90 Unspecified dementia, unspecified severity, without behavioral disturbance, psychotic disturbance, mood disturbance, and anxiety; R00.0 Tachycardia, unspecified; Z66 Do not resuscitate; Z79.899 Other long term (current) drug therapy; Z88.7 Allergy status to serum and vaccine; R33.9 Retention of urine, unspecified; K44.9 Diaphragmatic hernia without obstruction or gangrene; D63.8 Anemia in other chronic diseases classified elsewhere; F43.10 Post-traumatic stress disorder, unspecified; G89.29 Other chronic pain; M54.9 Dorsalgia, unspecified; Z87.81 Personal history of (healed) traumatic fracture; Z96.0 Presence of urogenital implants; R29.6 Repeated falls; E87.6 Hypokalemia

== ENCOUNTER → 2019-07-04 | Outpatient (REF) | payer OTHER, MEDICARE ==
[~2019-07-04] MED LIST changes: +ENSU1LIQ36 PO; +KEPP1TAB PO; +METF-729 PO; +OMEP40CA97 PO; +SUCR1ORA PO; +ZOFR4TAB16 PO
[2019-07-04 08:13] LABS: HEMOGLOBIN 11.2 g/dl (13.5-17.5); MEAN CORPUSCULAR HEMOGLOBIN 29.4 pg (27.0-33.0); MEAN CORPUSCULAR VOLUME 91.9 fl (80.0-96.0); PLATELET COUNT, AUTOMATED 168 10^3/uL (150-450); RED BLOOD COUNT 3.81 10^6/uL (4.30-6.10); WHITE BLOOD COUNT 5.2 10^3/uL (4.0-10.0)
[2019-07-04 08:52] LABS: ALBUMIN 1.7 GM/DL (3.2-5.2); ALT/SGPT < 6 U/L (12-78); BILIRUBIN,TOTAL 0.3 MG/DL (0.2-1.0); BLOOD UREA NITROGEN 12 MG/DL (7-18); CALCIUM LEVEL 8.3 MG/DL (8.8-10.2); CARBON DIOXIDE LEVEL 32 MEQ/L (21-32); CHLORIDE LEVEL 102 MEQ/L (98-107); CREATININE FOR GFR 0.67 MG/DL (0.70-1.30); GLOMERULAR FILTRATION RATE > 60.0 (>35); GLUCOSE, FASTING 65 MG/DL (70-100); POTASSIUM SERUM 4.3 MEQ/L (3.5-5.1); SODIUM LEVEL 139 MEQ/L (136-145); TOTAL PROTEIN 5.7 GM/DL (6.4-8.2)
[2019-07-04 15:11] LABS: FREE T4 1.15 NG/DL (0.76-1.46)
[2019-07-04 17:24] LABS: APPEARANCE, URINE HAZY (CLEAR); BACTERIA, URINE AUTO NEGATIVE (NEGATIVE); BILIRUBIN, URINE AUTO NEGATIVE (NEGATIVE); BLOOD, URINE BLOOD NEGATIVE (NEGATIVE); CALCIUM OXALATE CRYSTALS SMALL; COLOR, URINE AMBER (YELLOW); GLUCOSE, URINE (UA) AUTO NEGATIVE (NEGATIVE); KETONE, URINE AUTO 1+ mg/dL (NEGATIVE); LEUKOCYTE ESTERASE, URINE AUTO NEGATIVE (NEGATIVE); MUCUS, URINE SMALL (NEGATIVE); NITRITE, URINE AUTO NEGATIVE (NEGATIVE); PROTEIN, URINE AUTO NEGATIVE (NEGATIVE); RBC, URINE AUTO 3 /HPF (0-3); SQUAMOUS EPITHELIAL CELL UR AU 0 /HPF (0-6); UROBILINOGEN, URINE AUTO 0.2 mg/dL (0.0-2.0); WBC, URINE AUTO 2 /HPF (0-3)
== END ==
LOC: SKLAB5 13:32
PROVIDERS: ATTEND Internal Medicine
DX: R63.4 Abnormal weight loss (principal); R53.1 Weakness

== ENCOUNTER → 2019-07-06 | Outpatient (REF) | payer OTHER, MEDICARE ==
[2019-07-06 07:10] LABS: BLOOD UREA NITROGEN 12 MG/DL (7-18); CALCIUM LEVEL 8.2 MG/DL (8.8-10.2); CARBON DIOXIDE LEVEL 34 MEQ/L (21-32); CHLORIDE LEVEL 103 MEQ/L (98-107); CREATININE FOR GFR 0.76 MG/DL (0.70-1.30); GLOMERULAR FILTRATION RATE > 60.0 (>35); GLUCOSE, FASTING 85 MG/DL (70-100); POTASSIUM SERUM 4.1 MEQ/L (3.5-5.1); SODIUM LEVEL 138 MEQ/L (136-145)
== END ==
LOC: SKLAB5 08:15
PROVIDERS: ATTEND Internal Medicine
DX: E86.0 Dehydration (principal)

== ENCOUNTER → 2019-07-07 | Outpatient (REF) | payer OTHER, MEDICARE ==
[2019-07-07 06:27] LABS: BLOOD UREA NITROGEN 9 MG/DL (7-18); CALCIUM LEVEL 8.2 MG/DL (8.8-10.2); CARBON DIOXIDE LEVEL 33 MEQ/L (21-32); CHLORIDE LEVEL 104 MEQ/L (98-107); CREATININE FOR GFR 0.72 MG/DL (0.70-1.30); GLOMERULAR FILTRATION RATE > 60.0 (>35); GLUCOSE, FASTING 83 MG/DL (70-100); POTASSIUM SERUM 4.3 MEQ/L (3.5-5.1); SODIUM LEVEL 139 MEQ/L (136-145)
== END ==
LOC: SKLAB5 10:11
PROVIDERS: ATTEND Internal Medicine
DX: E86.0 Dehydration (principal)

== ENCOUNTER → 2019-07-08 | Outpatient (REF) | payer OTHER, MEDICARE ==
[2019-07-08 07:06] LABS: BLOOD UREA NITROGEN 7 MG/DL (7-18); CALCIUM LEVEL 7.9 MG/DL (8.8-10.2); CARBON DIOXIDE LEVEL 32 MEQ/L (21-32); CHLORIDE LEVEL 106 MEQ/L (98-107); CREATININE FOR GFR 0.68 MG/DL (0.70-1.30); GLOMERULAR FILTRATION RATE > 60.0 (>35); GLUCOSE, FASTING 78 MG/DL (70-100); POTASSIUM SERUM 4.2 MEQ/L (3.5-5.1); SODIUM LEVEL 143 MEQ/L (136-145)
== END ==
LOC: SKLAB5 08:15
PROVIDERS: ATTEND Internal Medicine
DX: E86.0 Dehydration (principal)

== ENCOUNTER → 2019-07-10 | Outpatient (REF) | payer OTHER, MEDICARE ==
[2019-07-10 14:30] LABS: ALBUMIN 1.8 GM/DL (3.2-5.2); BLOOD UREA NITROGEN 23 MG/DL (7-18); CALCIUM LEVEL 8.6 MG/DL (8.8-10.2); CARBON DIOXIDE LEVEL 33 MEQ/L (21-32); CHLORIDE LEVEL 104 MEQ/L (98-107); CREATININE FOR GFR 0.98 MG/DL (0.70-1.30); GLOMERULAR FILTRATION RATE > 60.0 (>35); GLUCOSE, FASTING 86 MG/DL (70-100); PHOSPHORUS LEVEL 3.9 MG/DL (2.5-4.9); POTASSIUM SERUM 4.6 MEQ/L (3.5-5.1); SODIUM LEVEL 141 MEQ/L (136-145)
--- NOTE | 2019-07-10 19:05 | ECGEPIP ---
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 Prominent R waves in V2 and V3; possibly related to simply different precordial lead placement. Subtle ST/T wave abnormalities. Slower rate than 06/23/19. Electronically Signed on 07-10-2019 19:05:17 EDT by Rizwan Lange
== END ==
LOC: SKLAB5 11:48
PROVIDERS: ATTEND Internal Medicine
DX: I48.91 Unspecified atrial fibrillation (principal); N18.9 Chronic kidney disease, unspecified

== ENCOUNTER → 2019-07-11 | Outpatient (REF) | payer OTHER, MEDICARE ==
[2019-07-11 12:23] LABS: BLOOD UREA NITROGEN 24 MG/DL (7-18); CALCIUM LEVEL 8.7 MG/DL (8.8-10.2); CARBON DIOXIDE LEVEL 33 MEQ/L (21-32); CHLORIDE LEVEL 103 MEQ/L (98-107); CREATININE FOR GFR 0.71 MG/DL (0.70-1.30); GLOMERULAR FILTRATION RATE > 60.0 (>35); GLUCOSE, FASTING 71 MG/DL (70-100); POTASSIUM SERUM 4.6 MEQ/L (3.5-5.1); SODIUM LEVEL 140 MEQ/L (136-145)
== END ==
LOC: SKLAB5 09:58
PROVIDERS: ATTEND Internal Medicine
DX: E86.0 Dehydration (principal)

== ENCOUNTER → 2019-07-12 | Outpatient (REF) | payer OTHER, MEDICARE ==
[~2019-07-12] MED LIST changes: +OMEP-221 PO
[2019-07-12 08:22] LABS: BLOOD UREA NITROGEN 26 MG/DL (7-18); CALCIUM LEVEL 8.7 MG/DL (8.8-10.2); CARBON DIOXIDE LEVEL 33 MEQ/L (21-32); CHLORIDE LEVEL 104 MEQ/L (98-107); CREATININE FOR GFR 0.76 MG/DL (0.70-1.30); GLOMERULAR FILTRATION RATE > 60.0 (>35); GLUCOSE, FASTING 70 MG/DL (70-100); POTASSIUM SERUM 4.3 MEQ/L (3.5-5.1); SODIUM LEVEL 141 MEQ/L (136-145)
== END ==
LOC: SKLAB5 06:00
PROVIDERS: ATTEND Internal Medicine
DX: E86.0 Dehydration (principal)

== ENCOUNTER 2019-07-14 21:21 | Inpatient (IN) | payer OTHER, MEDICARE ==
[~2019-07-14] VITALS: Ht 177.8 cm; Wt 50.0 kg
[~2019-07-14 21:21] MED LIST changes: -OMEP-221 PO
[2019-07-14] MEDS ORDERED: DIGOXIN INJ 0.5 MG/2 ML AMP (J1160) IV ONE (21:45)
[2019-07-14] MEDS ORDERED: ONDANSETRON 4MG/2ML VIAL As Ordered ONE (21:50)
[2019-07-14] MEDS ORDERED: ONDANSETRON 4MG/2ML VIAL IV ONE (22:00)
[2019-07-14 22:23] LABS: BASO % 0.2 % (0.0-1.0); EOS % 0.2 % (0.0-3.0); HEMATOCRIT 35.4 % (42.0-52.0); HEMOGLOBIN 11.1 g/dl (13.5-17.5); LYMPH # 1.2 10^3/uL (1.5-5.0); MEAN CORPUSCULAR HEMOGLOBIN 29.3 pg (27.0-33.0); MEAN CORPUSCULAR HGB CONC 31.4 g/dl (32.0-36.5); MEAN CORPUSCULAR VOLUME 93.4 fl (80.0-96.0); MONO # 0.5 10^3/uL (0.0-0.8); MONO % 9.4 % (0.0-5.0); NEUTROPHILS # 3.7 10^3/uL (1.5-8.5); NEUTROPHILS % 67.8 % (36.0-66.0); PLATELET COUNT, AUTOMATED 136 10^3/uL (150-450); RED BLOOD COUNT 3.79 10^6/uL (4.30-6.10); WHITE BLOOD COUNT 5.4 10^3/uL (4.0-10.0)
[2019-07-14 22:34] LABS: INR 1.45; PARTIAL THROMBOPLASTIN TIME 32.3 SECONDS (25.0-38.4); PROTHROMBIN TIME 17.4 SECONDS (11.8-14.0)
[2019-07-14] MEDS ORDERED: OMEP-221 PO (22:44)
[2019-07-14] MEDS ORDERED: GLUC1LIQ7 PO (22:45)
--- NOTE | 2019-07-14 23:01 | REPVR ---
PROCEDURE INFORMATION: Exam: CT Chest Without Contrast Exam date and time: 07/14/2019 10:36 PM Age: 83 years old Clinical indication: Chest pain; Additional info: Resp failure, new lll infiltrate TECHNIQUE: Imaging protocol: Computed tomography of the chest without contrast. 3D rendering: MIP and/or 3D reconstructed images were created by the technologist. Radiation optimization: All CT scans at this facility use at least one of these dose optimization techniques: automated exposure control; mA and/or kV adjustment per patient size (includes targeted exams where dose is matched to clinical indication); or iterative reconstruction. COMPARISON: CT ANGIO CHEST 06/25/2019 9:10 AM FINDINGS: Thyroid: Unremarkable. Tracheobronchial tree: There is endobronchial opacification in both lower lobes. Lungs: There is mild patchy ground-glass opacification in the right upper lobe, right middle lobe, and lingula. There is extensive patchy and dense consolidation in the left lower lobe and to a lesser extent in the right lower lobe. High attenuation material is present in the posterior segment of the left lower lobe, which is similar in appearance compared to the prior CTA chest on 06/25/2019. There are centrilobular emphysematous changes, predominantly in the upper lobes, which are fairly similar in appearance compared to the prior CTA chest on 06/25/2019. There is a 3 mm calcified granuloma in the left upper lobe, which is unchanged compared to the prior CTA chest on 06/25/2019 (image 39 of the axial series 201). There is also a 3 mm calcified granuloma in the superior segment of the left lower lobe, which is also unchanged compared to the prior CTA chest on 06/25/2019 (image 31 of the axial series 202). There is scarring in the right upper lobe. Pleural space: Unremarkable. No pneumothorax. No pleural effusion. Heart: No cardiomegaly or pericardial effusion. There are coronary artery calcifications. Mediastinum: There is fluid in the esophagus, which can be seen with gastroesophageal reflux. There is a large hiatal hernia. Aorta: The ascending aorta is dilated and measures 4 cm x 4.3 cm in diameter at the level of the pulmonary artery trunk. The descending thoracic aorta is normal caliber measures 2.9 cm x 2.8 cm in diameter at the level of the pulmonary artery trunk. There are moderate to severe atherosclerotic calcifications. Lymph nodes: There are subcentimeter mediastinal lymph nodes. However, no abnormally enlarged lymph nodes measuring greater than 1 cm in short axis are noted. Liver: There are calcified granulomas in the left hepatic lobe, which are unchanged compared to the prior CTA chest on 06/25/2019. Gallbladder and bile ducts: There is a 16 mm calcified gallstone in the distal portion of the distended gallbladder. No gallbladder wall thickening, pericholecystic fluid, or inflammatory fat stranding is noted around the gallbladder. No dilation of the bile ducts is identified. Pancreas: The pancreas is atrophic and otherwise unremarkable. Spleen: Unremarkable. No splenomegaly is noted. Adrenals: Normal. No adrenal mass is noted. Limited kidneys: There is a 2.1 cm benign-appearing exophytic cyst arising from the lower pole of the left kidney for which follow-up is not necessary. The kidneys were not fully imaged. Bones/joints: No fracture or dislocation is noted. There is no suspicious osteolytic or osteoblastic lesion. There are degenerative changes in the cervical spine and thoracic spine. Soft tissues: Unremarkable. No soft tissue fluid collection. IMPRESSION: 1. Multilobar pneumonia, which has developed since the prior CTA chest on 06/25/2019. 2. Dilated ascending aorta. 3. Centrilobular emphysematous changes, which are similar in appearance compared to the prior CTA chest on 06/25/2019. 4. Cholelithiasis. 5. Large hiatal hernia and evidence for gastroesophageal reflux. Electronically signed by: Adolph Huitron On 07/14/2019 23:00:28 PM
[2019-07-14 23:02] LABS: ALBUMIN 1.4 GM/DL (3.2-5.2); ALT/SGPT < 6 U/L (12-78); BILIRUBIN,DIRECT 0.2 MG/DL (0.0-0.2); BILIRUBIN,TOTAL 0.4 MG/DL (0.2-1.0); BLOOD UREA NITROGEN 29 MG/DL (7-18); CALCIUM LEVEL 6.9 MG/DL (8.8-10.2); CARBON DIOXIDE LEVEL 24 MEQ/L (21-32); CHLORIDE LEVEL 113 MEQ/L (98-107); CK-MB VALUE MASS 1.7 NG/ML (<3.6); CPK CREATINE PHOSPHOKINASE 78 U/L (39-308); CREATININE FOR GFR 0.76 MG/DL (0.70-1.30); GLOMERULAR FILTRATION RATE > 60.0 (>35); GLUCOSE, FASTING 121 MG/DL (70-100); LIPASE 45 U/L (73-393); MAGNESIUM LEVEL 1.2 MG/DL (1.8-2.4); MB/CK RELATIVE INDEX 2.18 (< OR =4); POTASSIUM SERUM 3.4 MEQ/L (3.5-5.1); SODIUM LEVEL 143 MEQ/L (136-145); TOTAL PROTEIN 4.8 GM/DL (6.4-8.2); TROPONIN I 0.03 NG/ML (< 0.10)
[2019-07-14 23:11] LABS: D-DIMER QUANT > 4000 ng/ml (<500)
[2019-07-14] MEDS ORDERED: MAG SULF 1GM/100ML (MAG RUN) 1 GM in IV 1 EA IV ONE (23:15)
[2019-07-14 23:22] LABS: C REACTIVE PROTEIN QUANTITATIV 8.21 MG/DL (0.00-0.30); LDH LACTATE DEHYDROGENASE 144 U/L (87-241)
[2019-07-14] MEDS ORDERED: SODIUM CHLORIDE 0.9% 1000ML IV STA (23:34)
--- NOTE | 2019-07-14 23:41 | HPEPDOC ---
[facility] Medical History & Physical Date of Admission Jul 15, 2019 Date of Service: Jul 15, 2019 Primary Care Physician: Jr Hope Collins Attending Physician: LOU VARELA MD History and Physical TIME OF SERVICE: 11:59 PM CHIEF COMPLAINT: Sent from detention HISTORY OF PRESENT ILLNESS: The patient was too lethargic to provide any history. The majority of the history is obtained from ER staff and the patient's daughter. According to the patient's daughter after this 83 yr old gentleman's , several years ago, he showed signs of depression but appeared to improve after being started on antidepressant. More recently has been in and out of the hospital several times. He has been bedbound since April. During the current COVID 19 pandemic, his family has been unable to visit him, but nursing staff have told his daughter that he has not been eating very much. Today he was sent from [facility] for evaluation of shortness of breath and tachycardia. Dr. Mathur requested admission for management of rapid A. fib /flutter that was unresponsive digoxin along with bilateral pneumonia, hypoxia requiring 6 L of O2 , with normal WBC count and thrombocytopenia which raised the suspicion for COVID-19. When exam the patient refused to open his eyes or answer questions, but nodded his head to indicate no when asked him if he had any pain. REVIEW OF SYSTEMS: 12 point review of systems negative except as listed in HPI PAST MEDICAL/ SURGICAL HISTORY: Paroxysmal atrial fibrillation. PE, DVT status post IVC History of upper GI bleed Dementia, with coexisting depression CKD 3 Protein calorie malnutrition Grand mal seizures. Debility/bedbound status / Sarcopenia Chronic anemia Esophagitis. Obstructive uropathy with chronic indwelling Degroot catheter SOCIAL HISTORY: Resides at [facility] Former smoker. FAMILY HISTORY: Unobtainable ALLERGIES: Please see below. HOME MEDICATIONS: Please see below. PHYSICAL EXAMINATION: Vital Signs Date Time Temp Pulse Resp B/P (MAP) Pulse Ox O2 Delivery O2 Flow Rate FiO2 07/14/19 23:30 146 91/57 (68) 96 07/14/19 21:48 99.4 22 Nasal Cannula 6.0 GEN: Slim build INTEGUMENT: Has generalized pallor HEENT: Has temporal wasting / nonrebreather mask is in place CVS: Heart rate irregularly irregular and tachycardic LUNGS: Lungs are clear to auscultation bilaterally ABDOMEN: Contour ( scaphoid) / soft is not grimacing with palpation MSK/EXTREMITIES: cachectic NEURO: unable to complete because of lack of patient cooperation PSYCH: , limited by lack of patient cooperation / he is not responding to questions resisting examination of pupils, did squeeze my hand when asked him to a nodded his head no when asked if he had pain LABORATORY DATA: Immature Granulocyte % (Auto) 0.4, Neutrophils (%) (Auto) 67.8H, Lymphocytes (%) (Auto) 22.0L, Monocytes (%) (Auto) 9.4H, Eosinophils (%) (Auto) 0.2, Basophils (%) (Auto) 0.2, Neutrophils # (Auto) 3.7, Lymphocytes # (Auto) 1.2L, Monocytes # (Auto) 0.5, Eosinophils # (Auto) 0.0, Basophils # (Auto) 0.0, Nucleated Red Blood Cells % (auto) 0.0, Anion Gap 6L, Glomerular Filtration Rate > 60.0, Calcium Level 6.9#L, Magnesium Level 1.2L, Total Bilirubin 0.4, Direct Bilirubin 0.2, Aspartate Amino Transf (AST/SGOT) 21, Alanine Aminotransferase (ALT/SGPT) < 6L, Alkaline Phosphatase 56, Lactate Dehydrogenase 144, Total Creatine Kinase 78, Creatine Kinase MB 1.7, Creatine Kinase MB Relative Index 2.18, Troponin I 0.03, C-Reactive Protein, Quantitative 8.21H, Total Protein 4.8L, Albumin 1.4L, Albumin/Globulin Ratio 0.41L, Lipase 45L 07/14/19 21:57: Prothrombin Time 17.4H, Prothromb Time International Ratio 1.45, Activated Partial Thromboplast Time 32.3, D-Dimer, Quantitative > 4000H 07/14/19 22:08: POC pH (Misc Panel) 7.458H, POC Base Excess (Misc Panel) 2.0, POC Saturated Percent O2 (Misc) 86L, POC pO2 (Misc Panel) 49.0*L, POC pCO2 (Misc Panel) 36.8, POC HCO3 (Misc Panel) 26.0, POC Total CO2 (Misc Panel) 27.0 07/14/19 22:59: IMAGING: CT chest " IMPRESSION: 1. Multilobar pneumonia, which has developed since the prior CTA chest on 06/25/2019. 2. Dilated ascending aorta. 3. Centrilobular emphysematous changes, which are similar in appearance compared to the prior CTA chest on 06/25/2019. 4. Cholelithiasis. 5. Large hiatal hernia and evidence for gastroesophageal reflux. " MICROBIOLOGY: 07/14/19 Blood Culture, Received Pending 07/14/19 Blood Culture, Received Pending 07/14/19 Respiratory Panel (PCR), Received Pending 07/14/19 Urine Culture, Received Pending ASSESSMENT: Mr. Mccormick is an 83-year-old with multiple medical problems including atrial fibrillation, PE, DVT, dementia, depression, CKD, protein calorie malnutrition and debility who was initially admitted for management of rapid A. fib and evaluation of hypoxia and sepsis secondary to bilateral pneumonia; after discussion with his daughter, we decided to transition to comfort measures only . PLAN: 1. TILE GRADER - TILE GRADER order set with no blood draws. Minimal vitals, Ativan, morphine and atropine. 2. Acute hypoxia & sepsis secondary to bilateral pneumonia, possibly due to COVID19 - droplets & contact precautions, follow up respiratory panel / supplemental O2 & morphine for dyspnea. We will continue the antibiotics for now as they may help manage his shortness of breath due to the pneumonia DVT PROPHYLAXIS: n/a DISPOSITION: will need at least 2 midnights stay prior to possible transfer back to [facility] Home Medications Scheduled Citalopram Hydrobromide (Celexa) 10 Mg Tablet, 10 MG PO DAILY Divalproex Sodium (Depakote) 500 Mg Tablet.dr, 500 MG PO BID Lactose-Reduced Food (Ensure Enlive) 237 Ml Liquid, 237 ML PO TID Levetiracetam (Keppra) 500 Mg Tablet, 1,000 MG PO BID Metoprolol Tartrate (Metoprolol Tartrate) 25 Mg Tablet, 12.5 MG PO BID Multivitamins (Thera M Plus Tablet) 1 Each Tablet, 1 TAB PO DAILY Nut.tx.gluc.intoler,Lac-Fr,Soy (Glucerna 1.2 Kevin) 237 Ml Liquid, 237 ML PO TID Omeprazole (Omeprazole) 40 Mg Capsule.dr, 40 MG PO DAILY Scheduled PRN Acetaminophen (Acetaminophen) 325 Mg Tablet, 650 MG PO Q4H PRN for PAIN / FEVER Bisacodyl (Dulcolax) 10 Mg Supp.rect, 10 MG NH DAILY PRN for CONSTIPATION Milk Of Magnesia (Milk of Magnesia) 2,400 Mg/10 Ml Oral.susp, 10 ML PO DAILY PRN for CONSTIPATION Ondansetron HCl (Zofran) 4 Mg Tablet, 4 MG PO Q6H PRN for NAUSEA OR VOMITING Sodium Phosphate,[place]-Dibasic (Enema) 133 Ml Enema, 1 BRITTANY NH DAILY PRN for CONSTIPATION Allergies Coded Allergies: Influenza Virus Vaccines (Verified Allergy, Unknown, 06/23/19) A-FIB/CHADSVASC A-FIB History Current/History of A-Fib/PAF?: Yes Current PO Anticoag Therapy: No (TILE GRADER status) Treatment Reason Anticoagulant not given: Other (outer diameter grinder tool) Other reason anticoagulant not: outer diameter grinder tool LOU VARELA MD Jul 14, 2019 23:41
[2019-07-15] MEDS ORDERED: MEROPENEM INJ 1 GM in IV 1 EA IV SCH ×2
[2019-07-15 00:06] LABS: FIBRINOGEN 281 MG/DL (221-452)
[2019-07-15] MEDS ORDERED: HYOSCYAMINE SULFATE 0.125 MG SUBL TABLET PO PRN (00:15)
[2019-07-15] MEDS ORDERED: LORazepam 2 MG/ML VIAL (J2060) IV PRN (00:15)
[2019-07-15] MEDS ORDERED: VANCOMYCIN HCL 1,000 MG, VIAL MATE ADAPTER 1 EACH in D5W 250 ML IV SCH (00:15)
[2019-07-15] MEDS ORDERED: FLEET ENEMA PR PRN (00:15)
[2019-07-15] MEDS ORDERED: ATROPINE SULFATE 1% OP SOLN 2 ML BTL SL PRN (00:15)
[2019-07-15] MEDS ORDERED: SCOPOLAMINE 1MG TRANSDERMAL PATCH TOP PRN (00:15)
[2019-07-15] MEDS ORDERED: ACETAMINOPHEN TAB 650MG DOSE (2X325MG) PO PRN (00:15)
[2019-07-15] MEDS ORDERED: ONDANSETRON 4 MG ORAL DISINTEGRATING TAB PO PRN (00:15)
[2019-07-15 00:45] LABS: FERRITIN 190 NG/ML (26-388); NT-PRO BNP 1945 PG/ML (<450); TRIGLYCERIDES LEVEL 111 MG/DL (<150)
[2019-07-15 01:00] VITALS: BP 85/52
[2019-07-15] MEDS: MORPHINE 2 MG/ML 1ML VIAL (J2270) IV PRN ×5 (01:32→18:15)
--- NOTE | 2019-07-15 03:30 | REP ---
Clinical: Atrial fibrillation. Chest pain. Comparison: 06/23/2019. Findings: Mediastinum and cardiac silhouette are within normal limits and stable. Lung melo demonstrate diffuse chronic interstitial changes. Superimposed subtle perihilar and lower lobe opacities are suspected (left greater than right). No effusion. No pneumothorax. Skeletal structures are intact. Impression: Chronic stable interstitial changes. Subtle superimposed perihilar and lower lobe infiltrates (left greater than right) noted. Electronically Signed by Tuan Ruffin MD 07/15/2019 03:22 A
[2019-07-15 08:39] LABS: HIV 1&2 SCREEN CENTAUR NEGATIVE (NEGATIVE)
--- NOTE | 2019-07-16 09:04 | ECGEPIP ---
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
--- NOTE | 2019-07-16 18:03 | DS.PDOC ---
Discharge Summary General Date of Admission Jul 14, 2019 at 23:34 Date of Discharge 07/15/19 Attending Physician: GARRISON ESCOBAR MD Discharge Summary PROCEDURES PERFORMED DURING STAY: None. ADMITTING DIAGNOSES: 1. Bilateral pneumonia, respiratory failure, severe protein calorie malnutrition, septic shock. DISCHARGE DIAGNOSES: 1. Bilateral pneumonia, respiratory failure, severe protein calorie malnutrition, septic shock. COMPLICATIONS/CHIEF COMPLAINT: A Fib W/ Rvr,Resp Failure,Sepsis Due To Pneumonia. HISTORY OF PRESENT ILLNESS: 83-year-old male with multiple medical comorbidities, was admitted with A. fib with RVR and respiratory failure secondary to bilateral pneumonia. Patient progressively worsened and became hypotensive, concerning for septic shock secondary to pneumonia. Patient's healthcare proxy was contacted by the admitting team and he was made comfort measures only. Patient was seen by me in the morning, on comfort measures, without complaints, overnight at 8:57 PM. Patient was pronounced by the overnight to. HOSPITAL COURSE: As above. DISPOSITION: 20 . TIME SPENT ON DISCHARGE: Greater than 10 minutes. Vital Signs/I&Os Vital Signs Date Time Temp Pulse Resp B/P (MAP) Pulse Ox O2 Delivery O2 Flow Rate FiO2 07/15/19 08:04 20 07/15/19 01:00 99.4 128 85/52 (63) 100 Non-Rebreather 07/15/19 00:15 15.0 I&O- Last 24 Hours up to 6 AM 07/16/19 06:00 Intake Total 0 ml Output Total 0 ml Balance 0 ml Microbiology Microbiology 07/14/19 Blood Culture - Preliminary, Resulted No growth after 24 hours . All specim... 07/14/19 Blood Culture - Preliminary, Resulted No growth after 24 hours . All specim... 07/14/19 Coronavirus COVID-19 PCR (JOVAN) - Final, Complete 07/14/19 Respiratory Panel (PCR) - Final, Complete 07/14/19 Urine Culture, Received Pending Discharge Medications Scheduled Citalopram Hydrobromide (Celexa) 10 Mg Tablet, 10 MG PO DAILY, (Reported) Divalproex Sodium (Depakote) 500 Mg Tablet.dr, 500 MG PO BID, (Reported) Lactose-Reduced Food (Ensure Enlive) 237 Ml Liquid, 237 ML PO TID, (Reported) Levetiracetam (Keppra) 500 Mg Tablet, 1,000 MG PO BID, (Reported) Metoprolol Tartrate (Metoprolol Tartrate) 25 Mg Tablet, 12.5 MG PO BID, (Reported) Multivitamins (Thera M Plus Tablet) 1 Each Tablet, 1 TAB PO DAILY, (Reported) Nut.tx.gluc.intoler,Lac-Fr,Soy (Glucerna 1.2 Kevin) 237 Ml Liquid, 237 ML PO TID, (Reported) Omeprazole (Omeprazole) 40 Mg Capsule.dr, 40 MG PO DAILY, (Reported) Scheduled PRN Acetaminophen (Acetaminophen) 325 Mg Tablet, 650 MG PO Q4H PRN for PAIN / FEVER, (Reported) Bisacodyl (Dulcolax) 10 Mg Supp.rect, 10 MG MS DAILY PRN for CONSTIPATION, (Reported) Milk Of Magnesia (Milk of Magnesia) 2,400 Mg/10 Ml Oral.susp, 10 ML PO DAILY PRN for CONSTIPATION, (Reported) Ondansetron HCl (Zofran) 4 Mg Tablet, 4 MG PO Q6H PRN for NAUSEA OR VOMITING, (Reported) Sodium Phosphate,[place]-Dibasic (Enema) 133 Ml Enema, 1 BRITTANY MS DAILY PRN for CONSTIPATION, (Reported) Allergies Coded Allergies: Influenza Virus Vaccines (Verified Allergy, Unknown, 06/23/19) GARRISON ESCOBAR MD Jul 16, 2019 18:03
== END 2019-07-15 22:05 | disposition expired | DRG 871 ==
LOC: M ED 21:21 → M ED INP 23:34 → ENRESERVTM 07-15 00:27 → ENRESERVDT 07-15 00:27 → M ICU 07-15 01:28 → M PCU 07-15 18:11
PROVIDERS: ADMIT Internal Medicine; ATTEND Internal Medicine
DX: A41.9 Sepsis, unspecified organism (principal); J18.9 Pneumonia, unspecified organism; J96.01 Acute respiratory failure with hypoxia; E43 Unspecified severe protein-calorie malnutrition; R65.21 Severe sepsis with septic shock; I48.92 Unspecified atrial flutter; N18.3 Chronic kidney disease, stage 3 (moderate); I48.91 Unspecified atrial fibrillation; Z51.5 Encounter for palliative care; Z79.899 Other long term (current) drug therapy; Z88.7 Allergy status to serum and vaccine; D69.6 Thrombocytopenia, unspecified; D64.9 Anemia, unspecified; F03.90 Unspecified dementia, unspecified severity, without behavioral disturbance, psychotic disturbance, mood disturbance, and anxiety; G40.409 Other generalized epilepsy and epileptic syndromes, not intractable, without status epilepticus